=== PATIENT | female | born 1960 | race Caucasian/White ===

== ENCOUNTER 2018-11-24 14:31 | Observation (INO) ==
[2018-11-24] MEDS ORDERED: Aspirin 81 MG TAB.CHEW PO ONE (14:37)
[2018-11-24] MEDS ORDERED: 0.9 % Sodium Chloride 500 ML IVC ONE (14:37)
--- NOTE | 2018-11-24 14:37 | Emergency Department Note ---
Disposition Clinical Impression: Elevated troponin Chest pain Qualifiers: Chest pain type: unspecified Qualified Code(s): R07.9 - Chest pain, unspecified Anemia Qualifiers: Anemia type: unspecified type Qualified Code(s): D64.9 - Anemia, unspecified Disposition: Admitted As Inpatient Condition: Good Time of Disposition: 17:28 General Adult HPI - General Chief complaint: ED Chest Pain Stated complaint: chest pain Time Seen by Provider: 11/24/18 14:37 Source: patient Mode of arrival: wheelchair Limitations: no limitations Nursing Notes Reviewed: Yes Vital Signs Reviewed: Yes - History of Present Illness HPI Narrative: Female patient presenting to emergency complaining of left-sided chest pain that started after she was shopping. She attempted to go home with no relief of the chest pain. She did end up taking 2 baby aspirin. She denies any shortness of breath with this but does report some nausea. When she got to the hospital she syncopized outside. She was brought in to the hospital. She was alerted to verbal stimuli. Kept her eyes shut during most of my initial exam. However she was mentating appropriately and moving all 4 extremity is. No slurred speech. No neurologic deficits noted. Reporting left-sided chest pain that radiated to her shoulder. Nauseated previously but not at this time. Patient does have pallor appearance about her lips. Reports that the pain radiates to her back. Pain Scale: 7 - Related Data Home Medications Medication Instructions Recorded Confirmed Levothyroxine [Synthroid] 75 mcg PO QAM 07/19/15 11/24/18 Loratadine [Claritin] 10 mg PO QAM 07/19/15 11/24/18 Omeprazole [PriLOSEC] 40 mg PO QAM 07/19/15 11/24/18 Lisinopril [Zestril] 20 mg PO DAILY 11/24/18 11/24/18 Metoprolol [Lopressor] 12.5 mg PO BID 11/24/18 11/24/18 Multivit-Min/Folic Acid/Vit K1 1 cap PO DAILY 11/24/18 11/24/18 [Multi For Her 50 Plus Softgel] Ursodiol 1,200 mg PO BID 11/24/18 11/24/18 amLODIPine [Norvasc] 5 mg PO DAILY 11/24/18 11/24/18 Allergies Allergy/AdvReac Type Severity Reaction Status Date / Time No Known Allergies Allergy Verified 07/19/15 12:50 All systems ED: reviewed and negative except as stated. Review of Systems: As Per HPI Constitutional: Denies: fever, chills Cardiovascular: Reports: chest pain, palpitations, syncope Respiratory: Reports: dyspnea (Associated with the chest pain.). Denies: cough Gastrointestinal: Reports: nausea. Denies: abdominal pain, vomiting, diarrhea, hematemesis, melena, hematochezia Genitourinary: Denies: urgency, dysuria, frequency Neurological: Reports: weakness Past Medical History - Past Medical History Attestation: Yes The following information was validated with the patient. 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 Absent: scleral icterus - ENT ENT exam: normal exam, normal oropharynx, mucous membranes moist - Neck Neck exam: Present: normal inspection, full ROM, trachea midline. Absent: tenderness - Chest Chest inspection: Present: normal inspection, symmetric chest wall rise - Respiratory Respiratory exam: Present: normal lung sounds bilaterally. Absent: respiratory distress, accessory muscle use - Cardiovascular Cardiovascular exam: Present: regular rate, normal rhythm, normal heart sounds - Abdominal Exam Abdominal exam: Present: soft, Non-Tender. Absent: tenderness, distention, guarding, rebound, rigidity - Extremities Exam Extremities exam: Present: normal inspection, full ROM, normal capillary refill. Absent: tenderness, pedal edema, calf tenderness - Back Exam Back exam: Present: normal inspection, full ROM. Absent: tenderness - Neurological Exam Neurological exam: Present: alert, oriented X3 - Psychiatric Psychiatric exam: Present: normal affect, normal mood - Skin Skin exam: Present: warm, dry, intact, pallor Course Course Narrative: Patient with pallor color and appears very weak and tired presenting to the emergency department complaining of left sided chest pain that started today. She has had a cardiac workup previously with several cardiac catheters performed but no stent placed. She reports chest pain that started today while she was shopping. Did not really whenever she went home or with 2 baby aspirin. She then decided to come to the emergency department where she syncopized outside. She denies any trouble urinating or defecating. Denies any melena or hematochezia. Denies any abdominal pain but does report some nausea associated with the chest pain. Eyes any diaphoresis currently. No recent history of syncope. We did get a CT of patient's head which was within normal limits. We did get a CT dissection study of patient's chest secondary to her chest pain and syncope which was negative for dissection. Patient was found to be anemic on lab work. No history of this previously. We did do a bedside Hemoccult which showed a darkened stool. Results are pending at this time. We will provide patient with 1 unit of blood at this time and admit to the hospital. She is agreeable with this. Patient's troponin is elevated at 0.13. She did have some increase in her ST depressions in leads V5 and V6 however I do believe that her chest pain and troponin are likely ischemic changes from her anemia. Vital Signs Temperature 98.2 F 11/24/18 14:32 Pulse Rate 76 11/24/18 14:32 Respiratory Rate 16 11/24/18 14:32 Blood Pressure 140/70 11/24/18 14:32 O2 Sat by Pulse Oximetry 100 11/24/18 14:32 Temperature 98.2 F 11/24/18 14:32 Pulse Rate 69 11/24/18 16:16 Respiratory Rate 18 11/24/18 17:14 Blood Pressure 119/65 11/24/18 17:14 O2 Sat by Pulse Oximetry 100 11/24/18 16:16 Oxygen Delivery Oxygen Delivery Room Air Medical Decision Making - Medical Records Medical records reviewed: Yes I reviewed the patient's medical records. - Lab Data Lab results reviewed: Yes I reviewed the patient's lab results. Result diagrams: 11/24/18 14:35 11/24/18 14:35 Lab Results 11/24/18 11/24/18 11/24/18 Range/Units 14:35 14:35 14:35 WBC 8.2 (4.3-11.1) K/mcL RBC 2.45 L (3.82-4.97) M/mcL Hgb 6.8 L (11.5-15.4) g/dL Hct 22.3 L (35.3-44.9) % MCV 91.0 (83.0-100.0) fL MCH 27.8 L (28.0-33.3) pg MCHC 30.5 L (31.6-35.5) g/dL RDW 15.4 H (11.5-14.5) % Plt Count 187 (140-400) K/mcL MPV 11.9 (9.4-12.4) fL Immature Gran % 0.6 (0-4) % Seg Neutrophils % 47.8 % Lymphocytes % 42.0 % Monocytes % 7.1 % Eosinophils % 2.0 % Basophils % 0.5 % Neutrophils # 3.9 (1.6-8.9) K/mcL Lymphocytes # 3.4 (0.6-4.6) K/mcL Monocytes # 0.6 (0.0-1.3) K/mcL Eosinophils # 0.2 (0.0-0.6) K/mcL Basophils # 0.0 (0.0-0.2) K/mcL PT 11.1 (9.4-12.1) Seconds INR 1.0 APTT 34.1 (26.0-36.0) Seconds Sodium (136-145) mEq/L Potassium (3.5-5.1) mEq/L Chloride (98-107) mEq/L Carbon Dioxide (23-29) mEq/L BUN (6-20) mg/dL Creatinine (0.60-1.20) mg/dL Est GFR ( Amer) (> 60) Est GFR (Non-Af Amer) (> 60) BUN/Creatinine Ratio (6-26) Glucose (70-105) mg/dL POC Glucose 133 H (70-99) mg/dL Calculated Osmolality (280-300) Calcium (8.6-10.3) mg/dL Troponin I (< 0.04) ng/mL Urine Color (Yellow) Urine Clarity (Clear) Urine pH (5.0-8.0) pH Units Ur Specific [place] (1.010-1.025) Urine Protein (Neg-Trace) mg/dL Urine Glucose (UA) (Normal) mg/dL Urine Ketones (Negative) mg/dL Urine Blood (Negative) Urine Nitrite (Negative) Urine Bilirubin (Negative) Urine Urobilinogen (Normal) mg/dL Ur Leukocyte Esterase (Negative) Urine Microscopic RBC (0-3) per hpf Urine Microscopic WBC (0-3) per hpf Ur Squamous Epith Cells (None-Few) per lpf Urine Bacteria (None-Few) per hpf Hyaline Casts (None-Few) per lpf Ur Culture Indicated? (NO) Stool Occult Bld Scrn (Negative) 11/24/18 11/24/18 11/24/18 Range/Units 14:35 16:18 16:56 WBC (4.3-11.1) K/mcL RBC (3.82-4.97) M/mcL Hgb (11.5-15.4) g/dL Hct (35.3-44.9) % MCV (83.0-100.0) fL MCH (28.0-33.3) pg MCHC (31.6-35.5) g/dL RDW (11.5-14.5) % Plt Count (140-400) K/mcL MPV (9.4-12.4) fL Immature Gran % (0-4) % Seg Neutrophils % % Lymphocytes % % Monocytes % % Eosinophils % % Basophils % % Neutrophils # (1.6-8.9) K/mcL Lymphocytes # (0.6-4.6) K/mcL Monocytes # (0.0-1.3) K/mcL Eosinophils # (0.0-0.6) K/mcL Basophils # (0.0-0.2) K/mcL PT (9.4-12.1) Seconds INR APTT (26.0-36.0) Seconds Sodium 141 (136-145) mEq/L Potassium 4.0 (3.5-5.1) mEq/L Chloride 107 (98-107) mEq/L Carbon Dioxide 26 (23-29) mEq/L BUN 25 H (6-20) mg/dL Creatinine 0.89 (0.60-1.20) mg/dL Est GFR ( Amer) > 60 (> 60) Est GFR (Non-Af Amer) > 60 (> 60) BUN/Creatinine Ratio 28 H (6-26) Glucose 109 H (70-105) mg/dL POC Glucose (70-99) mg/dL Calculated Osmolality 297 (280-300) Calcium 9.2 (8.6-10.3) mg/dL Troponin I 0.13 H* (< 0.04) ng/mL Urine Color Yellow (Yellow) Urine Clarity Clear (Clear) Urine pH 6.0 (5.0-8.0) pH Units Ur Specific [place] 1.026 H (1.010-1.025) Urine Protein Negative (Neg-Trace) mg/dL Urine Glucose (UA) Normal (Normal) mg/dL Urine Ketones Negative (Negative) mg/dL Urine Blood Negative (Negative) Urine Nitrite Negative (Negative) Urine Bilirubin Negative (Negative) Urine Urobilinogen Normal (Normal) mg/dL Ur Leukocyte Esterase Moderate H (Negative) Urine Microscopic RBC 0-3 (0-3) per hpf Urine Microscopic WBC 0-3 (0-3) per hpf Ur Squamous Epith Cells Moderate H (None-Few) per lpf Urine Bacteria None Seen (None-Few) per hpf Hyaline Casts None Seen (None-Few) per lpf Ur Culture Indicated? YES A (NO) Stool Occult Bld Scrn Positive A (Negative) - Radiology Data Radiology results reviewed: Yes I reviewed the patient's radiology results. Chest X-Ray 11/24/18 14:38 IMPRESSION: No acute abnormality detected. D/ / Godwin Waterman MD / Godwin Waterman MD Interpreting Provider: Godwin Waterman MD - EKG Data EKG #1 EKG attestation: Yes I reviewed and interpreted this EKG. EKG results narrative: Sinus rhythm with a left bundle branch block at a rate of 73. WA interval is 168. QRS duration is 144. QT is 425. QTC is 469. Patient does have ST elevation in lead V1 and V2 consistent with a previous left bundle branch block. These were seen on previous EKG dated 10/13/2018. Patient also has T-wave inversion in leads V5 and V6 does appear to be more prominent than previous EKG dated the 2018. Patient's EKG does not need Scarbosa criteria for STEMI. Attestation Statement - Attestation Attestation: Luis Alberto Gallegos, examined this patient and my medical decision-making was reviewed with the OCCUPATIONAL THERAPY AIDES TEACHER/PA/Advanced Practice Nurse/Resident Physician. I agree with the documented findings, disposition and treatment plan as described except to the extent set forth below. 58-year-old female presents emergency Department with concerns of acute onset chest pain. Patient states she has been feeling weak and fatigued over the past few days however it significantly worsened today. Patient states she became weak, fatigued, short of breath when she had her chest pain today while shopping. Patient states the pain was a pressure in the center of her chest that did not radiate. It was exacerbated by ambulation and exertion and improves with rest. The last about 8-10 minutes at a time. Once the pain improved she tried to continue shopping however her symptoms returned. She syncopized while trying to walk into the emergency department when she had a repeat of the weakness, fatigue and chest pain. Lungs are clear to auscultation bilaterally. Abdomen is nontender to palpation. The laboratory evaluation returned showing that she was anemic. This is a significant change from her lab s 2 years ago. Patient denies a history of GI bleeding. She denies hematochezia, melena or recent trauma. She does not take blood thinning medication. Patient vital signs are stable in emergency department. She will be admitted to the hospitalist for further care and evaluation.
[2018-11-24 15:01] LABS: Basophils % 0.5 %; Eosinophils # 0.2 K/mcL (0.0-0.6); Hematocrit 22.3 % (35.3-44.9); Hemoglobin 6.8 g/dL (11.5-15.4); Immature Granulocytes % 0.6 % (0-4); Lymphocytes # 3.4 K/mcL (0.6-4.6); Mean Corpuscular HGB Conc 30.5 g/dL (31.6-35.5); Mean Corpuscular Hemoglobin 27.8 pg (28.0-33.3); Mean Platelet Volume 11.9 fL (9.4-12.4); Monocytes # 0.6 K/mcL (0.0-1.3); Monocytes % 7.1 %; Neutrophils # 3.9 K/mcL (1.6-8.9); Platelet Count 187 K/mcL (140-400); Red Blood Count 2.45 M/mcL (3.82-4.97); Red Cell Distribution Width 15.4 % (11.5-14.5); Segmented Neutrophils % 47.8 %; White Blood Count 8.2 K/mcL (4.3-11.1)
[2018-11-24 15:13] LABS: Prothrombin Time 11.1 Seconds (9.4-12.1)
[2018-11-24 15:15] LABS: Activated Partial Thrombo Time 34.1 Seconds (26.0-36.0)
[2018-11-24 15:24] LABS: BUN/Creatinine Ratio 28 (6-26); Blood Urea Nitrogen 25 mg/dL (6-20); Calcium 9.2 mg/dL (8.6-10.3); Carbon Dioxide 26 mEq/L (23-29); Chloride 107 mEq/L (98-107); Glucose 109 mg/dL (70-105); Osmolality,Calculated 297 (280-300); Sodium 141 mEq/L (136-145); eGFR For African Americans > 60 (> 60); eGFR For Non-African Americans > 60 (> 60)
[2018-11-24] MEDS ORDERED: Isovue-370 500 ML BOTTLE IVP ONE (15:26)
[2018-11-24 15:30] LABS: Troponin I 0.13 ng/mL (< 0.04)
[2018-11-24 16:29] LABS: Bilirubin,Urine Negative (Negative); Blood,Urine Negative (Negative); Clarity,Urine Clear (Clear); Color,Urine Yellow (Yellow); Glucose,Urine (UA) Normal (Normal); Ketones,Urine Negative (Negative); Leukocyte Esterase,Urine Moderate (Negative); Nitrite,Urine Negative (Negative); Protein,Urine Negative (Neg-Trace); Specific Gravity,Urine 1.026 (1.010-1.025); Urobilinogen,Urine Normal (Normal)
[2018-11-24 16:31] LABS: Bacteria,Urine None Seen per hpf (None-Few); Hyaline Casts,Urine None Seen per lpf (None-Few); RBC,Urine 0-3 per hpf (0-3); Squamous Epithelial Cell,Urine Moderate per lpf (None-Few); WBC,Urine 0-3 per hpf (0-3)
--- NOTE | 2018-11-24 16:49 | Internal Med History&Physical ---
Date of Encounter: 11/24/18 Time of Encounter: 16:59 Internal Medicine - H&P: HPI History of present illness: Ms. Butcher is a 58 year old female with history of HOCM presented for chest pain and fatigue. For the past week patient has felt fatigued and overall too weak. She has been short of breath with exertion. For the last two days, she has had intermittent episodes of chest pain that is substernal that radiates to her left jaw, and some numbness/tingling. She denies n/v, fevers, abdominal pain, melena, hematochezia, hemoptysis. She took two baby aspirin and was brought into the ED by her and friend for evaluation and passed out briefly prior to evaluation. She has never had any episodes like this in the past. In the ED troponin was elevated at 0.14. An EKG showed LBBB with normal HR, T wave inversions in V5, V6. Hemoglobin low at 6.8, with last known baseline a few years ago was 11.0. A CTA chest/abdomen/pelvis was negative for dissection or obstruction. A CT head was negative. Family history reviewed, significant for coronary artery disease. Past Med Surg Social Fam HX - Past Medical History Medical history: GERD, hypertension, thyroid disease, other Additional medical history: FUNEZ Psychiatric history: depression - Past Surgical History Surgical History: other Additional surgical history: left eye sx - Social History Smoking Status: Never smoker Smokeless Tobacco Status: No Alcohol use: none Drug use: none Internal Medicine - H&P: Meds Levothyroxine [Synthroid] 75 mcg PO QAM 07/19/15 [History] Loratadine [Claritin] 10 mg PO QAM 07/19/15 [History] Omeprazole [PriLOSEC] 40 mg PO QAM 07/19/15 [History] Lisinopril [Zestril] 20 mg PO DAILY 11/24/18 [History] Metoprolol [Lopressor] 12.5 mg PO BID 11/24/18 [History] Multivit-Min/Folic Acid/Vit K1 [Multi For Her 50 Plus Softgel] 1 cap PO DAILY 11/24/18 [History] Ursodiol 1,200 mg PO BID 11/24/18 [History] amLODIPine [Norvasc] 5 mg PO DAILY 11/24/18 [History] Allergy/AdvReac Type Severity Reaction Status Date / Time No Known Allergies Allergy Verified 07/19/15 12:50 All Systems PM: A 10-system review of systems was performed and is negative for pertinent findings except as documented above in the HPI. - Constitutional Constitutional: fatigue, lethargy - EENT Eyes: no blurry vision Nose, mouth and throat: no bleeding gums, no dysphagia, no epistaxis, no nasal discharge, no neck mass - Cardiovascular Cardiovascular ROS IM: chest pain, dyspnea on exertion, no diaphoresis - Respiratory Respiratory: no cough, no hemoptysis - Gastrointestinal Gastrointestinal: no abdominal pain, no change in bowel habits, no change in stool character, no coffee ground emesis, no constipation, no cramping, no hematemesis, no hematochezia, no loose stools, no melena, no nausea, no odynophagia, no vomiting - Genitourinary Genitourinary: no change in urinary stream, no dysuria, no flank pain, no hematuria - Musculoskeletal Musculoskeletal ROS IM: no numbness, no tingling - Integumentary Integumentary IM: no rash, no unusual bruising - Neurological Neurological ROS: no confusion, no convulsions, no focal weakness, no numbness, no tingling, no tremor(s) - Hematologic/Lymphatic Hematologic/Lymphatic: no easy bruising - Constitutional Vitals: Temp Pulse Resp BP Pulse Ox 98.2 F 69 16 133/72 100 11/24/18 14:32 11/24/18 16:16 11/24/18 16:16 11/24/18 16:16 11/24/18 16:16 General appearance: Present: A&O X 3, answers questions appropriately Exam: . - Head Head exam: Present: atraumatic, normocephalic - Eye Eye exam: Present: PERRL, sclera anicteric. Absent: conjuntiva pink (conjuntiva pallor) Pupils: Present: PERRL - ENT ENT exam: Present: mucous membranes dry Additional comments: oral mucosa pale - Neck Neck exam general surgery: Present: supple, trachea midline. Absent: lymphadenopathy - Respiratory Respiratory exam: Present: CTAB. Absent: accessory muscle use, rales, rhonchi, wheezes - Cardiovascular Cardiovascular exam: Present: RRR, +S1, +S2. Absent: diastolic murmur, gallop, rubs, systolic murmur - GI/Abdominal GI/Abdominal exam: Present: normal bowel sounds, soft, no peritoneal signs. Absent: distended, tenderness - Extremities Exam Extremities exam: Present: warm, radial pulses palpable and symmetrical. Absent: calf tenderness, cyanotic, pedal edema - Neurological Exam Neurological exam: Present: CN II-XII intact, oriented X3, no focal deficits. Absent: pronater drift, facial droop, speech deficit - Skin Skin exam: Present: dry, intact Internal Med - H&P Results - Labs CBC & Chem 7: 11/24/18 14:35 11/24/18 14:35 Labs: Short CBC 11/24/18 Range/Units 14:35 WBC 8.2 (4.3-11.1) K/mcL Hgb 6.8 L (11.5-15.4) g/dL Hct 22.3 L (35.3-44.9) % Plt Count 187 (140-400) K/mcL Neutrophils # 3.9 (1.6-8.9) K/mcL BMP 11/24/18 14:35 Sodium 141 Potassium 4.0 Chloride 107 Carbon Dioxide 26 BUN 25 H Creatinine 0.89 Glucose 109 H Calcium 9.2 Cardiac Enzymes 11/24/18 Range/Units 14:35 Troponin I 0.13 H* (< 0.04) ng/mL Urine 11/24/18 Range/Units 16:18 Urine Color Yellow (Yellow) Urine Clarity Clear (Clear) Urine pH 6.0 (5.0-8.0) pH Units Ur Specific [place] 1.026 H (1.010-1.025) Urine Protein Negative (Neg-Trace) mg/dL Urine Glucose (UA) Normal (Normal) mg/dL - Impressions ITS Impressions Chest X-Ray 11/24/18 14:38 IMPRESSION: No acute abnormality detected. D/ / Godwin Waterman MD / Godwin Wateramn MD Interpreting Provider: Godwin Waterman MD Head CT 11/24/18 14:39 IMPRESSION: No acute intracranial abnormality. D/ / Ha Marks MD / Ha Marks MD Interpreting Provider: Ha Marks MD Dissection 11/24/18 15:26 IMPRESSION: 1. No thoracoabdominal aortic aneurysm or dissection. No acute abnormality in the chest, abdomen, or pelvis. 2. Mild cardiomegaly. 3. Small hiatal hernia. 4. The urinary bladder is fluid distended resulting in fullness of the ureters and collecting systems bilaterally. D/ / 11/24/2018 16:23:16 Ha Marks MD / abel Interpreting Provider: Ha Marks MD - Assessment and Plan (1) Symptomatic anemia Current Visit: Yes Status: Acute Assessment and plan: Suspect GI bleed. Hemoglobin 6.8 on admission, BUN slightly elevated. Denies any gross appearing melena, hematochezia, hemoptysis, hematuria, hematemesis. - Consult GI - Transfuse to keep Hgb >7.0, transfusing one unit. - IV Protonix Q12H - NPO (2) NSTEMI (non-ST elevated myocardial infarction) Current Visit: Yes Status: Acute Assessment and plan: Suspect due to type II from demand ischemiaSuspect this is due to anemia, but will need to rule out cardiac causes. - cycle cardiac enzymes - echocardiogram - Cardiology consultation - See plan for anemia (3) Syncope Current Visit: Yes Status: Acute Assessment and plan: Likely due to acute and symptomatic anemia. CT head negative, hemodynamically stable. Qualifiers: Syncope type: unspecified Qualified Code(s): R55 - Syncope and collapse (4) HTN (hypertension) Current Visit: No Status: Chronic Assessment and plan: After cycling HH and monitoring VS, can resume BP medications as needed. Qualifiers: Hypertension type: essential hypertension Qualified Code(s): I10 - Essential (primary) hypertension (5) Hypothyroid Current Visit: No Status: Chronic Qualifiers: Hypothyroidism type: unspecified Qualified Code(s): E03.9 - Hypothyroidism, unspecified - Time Spent With Patient Total time spent is greater than 50% in coordination of care (as documented) at patient's floor/unit and/or counseling patient:
[2018-11-24] MEDS ORDERED: 0.9 % Sodium Chloride 250 ML ONE (17:50)
[2018-11-24] MEDS ORDERED: Naloxone 0.4 MG/ML INJ IVP PRN (18:06)
[2018-11-24] MEDS ORDERED: 0.9 % Sodium Chloride w KCl 20 MEQ/1,000 ML MLS IVC SCH (18:15)
[2018-11-24] MEDS: Pantoprazole 40 MG in 0.9 % Sodium Chloride Mini Bag 100 ML IVC SCH (20:23)
[2018-11-24 21:58] LABS: Hematocrit 23.4 % (35.3-44.9); Hemoglobin 7.3 g/dL (11.5-15.4)
[2018-11-24 22:18] LABS: % Iron Saturation 21 % (15-50); Iron 98 mcg/dL (50-170); Transferrin 327 mg/dL (203-362)
[2018-11-24 22:46] LABS: Ferritin < 8 ng/mL (10-120)
[2018-11-25 00:06] LABS: Troponin I 0.17 ng/mL (< 0.04)
[2018-11-25] MEDS: Pantoprazole 40 MG in 0.9 % Sodium Chloride Mini Bag 100 ML IVC SCH ×3 (00:54→10:58)
[2018-11-25 04:32] LABS: Basophils % 0.3 %; Eosinophils # 0.2 K/mcL (0.0-0.6); Eosinophils % 2.9 %; Hematocrit 22.3 % (35.3-44.9); Immature Granulocytes % 0.6 % (0-4); Lymphocytes # 2.7 K/mcL (0.6-4.6); Lymphocytes % 38.9 %; Mean Corpuscular HGB Conc 31.4 g/dL (31.6-35.5); Mean Corpuscular Hemoglobin 28.1 pg (28.0-33.3); Mean Corpuscular Volume 89.6 fL (83.0-100.0); Monocytes # 0.5 K/mcL (0.0-1.3); Monocytes % 6.6 %; Neutrophils # 3.6 K/mcL (1.6-8.9); Platelet Count 163 K/mcL (140-400); Red Blood Count 2.49 M/mcL (3.82-4.97); Red Cell Distribution Width 15.8 % (11.5-14.5); Segmented Neutrophils % 50.7 %
[2018-11-25 04:50] LABS: BUN/Creatinine Ratio 24 (6-26); Blood Urea Nitrogen 17 mg/dL (6-20); Calcium 8.3 mg/dL (8.6-10.3); Carbon Dioxide 23 mEq/L (23-29); Chloride 112 mEq/L (98-107); Glucose 91 mg/dL (70-105); Osmolality,Calculated 293 (280-300); Potassium 3.8 mEq/L (3.5-5.1); Sodium 141 mEq/L (136-145); eGFR For African Americans > 60 (> 60); eGFR For Non-African Americans > 60 (> 60)
[2018-11-25] MEDS ORDERED: Pantoprazole 40 MG VIAL IVP SCH (06:00)
[2018-11-25] MEDS ORDERED: 0.9 % Sodium Chloride 250 ML ONE (06:05)
[2018-11-25] MEDS: Lisinopril 20 MG TABLET PO SCH ×2 (07:36→18:35)
[2018-11-25] MEDS: Multivit/Ca/Min/Fe/FA 1 TAB TABLET PO SCH (07:36)
[2018-11-25] MEDS: amLODIPine 5 MG TABLET PO SCH ×2 (07:36→18:36)
[2018-11-25 10:10] LABS: Hematocrit 27.5 % (35.3-44.9)
[2018-11-25 10:14] LABS: Hemoglobin 8.7 g/dL (11.5-15.4)
--- NOTE | 2018-11-25 10:23 | Cardiology Consult Note ---
<Per Lea - Last Filed: 11/25/18 10:37> Date of Encounter: 11/25/18 Time of Encounter: 10:20 Assessment and Plan (1) Elevated troponin Current Visit: Yes Status: Acute Troponin 0.13, 0.17, 0.14 in setting of acute anemia--HGB 6.8, occult stool positive. Suspect demand ischemia, nondiagnostic for ACS. Presented with fatigue, dyspnea and chest pain. Currently not a candidate for ischemic evaluation given acute bleeding. EKG showed LBBB which is known. TTE 08/27/17: LVEF 60%. Asymmetric basal septal hypertrophy. Elevated gradient along the LVOT at rest, 62 mmHg. Mild LVDD. Moderate calcified/thickened aortic valve - possibly a congenitally abnormal valve. Repeat TTE. Anticipate sign off if no significant changes noted on TTE. (2) Syncope Current Visit: Yes Status: Acute Episode of dizziness and syncope after arrival. Suspect secondary to blood loss with HGB 6.8 on arrival. Repeat TTE. Qualifiers: Syncope type: unspecified Qualified Code(s): R55 - Syncope and collapse (3) Chest pain Current Visit: Yes Status: Acute Chest pain in setting of acute anemia. Chest pain free currently. Not a candidate for ischemic evaluation given bleeding. TTE. Qualifiers: Chest pain type: unspecified Qualified Code(s): R07.9 - Chest pain, unspecified (4) HOCM (hypertrophic obstructive cardiomyopathy) Current Visit: Yes Status: Acute TTE 08/27/17: LVEF 60%. Asymmetric basal septal hypertrophy. Turbulent color-flow along the LVOT secondary to obstruction (MELO of the mitral valve may be present but not optimally seen). Elevated gradient along the LVOT at rest, 62 mmHg. Recommend hydration, blood transfusions and BB. Increase BB to Lopressor 25mg BID. Discussion w patient/family: The assessment and plan as outlined above was discussed with the patient and/or family members who expressed understanding and agreement. All questions were answered. Thank you for involving us in the care of your patient. Please call with any questions. I will discuss all the above with Dr. Covarrubias and make changes as necessary. History of Present Illness Consult date: 11/25/18 Consult reason: chest pain, elevated troponin Chief complaint: chest pain, fatigue, dyspnea History of present illness: Ms. Butcher is a 58 year old female with PMH of HOCM that presented to ED for chest pain, exertional dyspnea and fatigue for the past week. Chest pain is substernal that radiates to her left jaw, and some numbness/tingling. She took two baby aspirin and was brought into the ED by her and friend for evaluation and passed out briefly prior to evaluation while in the ED. Reports intermittent dizziness. She has never had any episodes like this in the past. In the ED troponin was elevated at 0.13, 0.17, 0.14. An EKG showed LBBB which is known. HGB 6.8, with last known baseline a few years ago was 11.0. A CTA chest/abdomen/pelvis was negative for dissection. A CT head was negative. Occult blood was positive. Cardiology consulted for further recs. Prior CV testing: Holter 10/16/18: Underlying rhythm is sinus. Infrequent ventricular ectopy. A 6- beat run of NSVT at 126 bpm. Occasional supraventricular ectopy. Symptoms correspond to sinus rhythm. TTE 08/27/17: LVEF 60%. Asymmetric basal septal hypertrophy. Turbulent color-flow along the LVOT secondary to obstruction (MELO of the mitral valve may be present but not optimally seen). Elevated gradient along the LVOT at rest, 62 mmHg. Mild LVDD. Normal RV structure and function. Mild MR. Moderate calcified/thickened aortic valve - possibly a congenitally abnormal valve. Unable to calculate aortic valve area due to turbulent LVOT signal. Mild AR. Mild TR. Mild phtn. There is a small pericardial effusion present most prominent along the inferior wall. There is no echocardiographic evidence of tamponade. Past Med Surg Social Fam HX - Past Medical History Medical history: GERD, hypertension, thyroid disease, other Additional medical history: FUNEZ Psychiatric history: depression - Past Surgical History Surgical History: other Additional surgical history: left eye sx - Social History Smoking Status: Never smoker Smokeless Tobacco Status: No Alcohol use: none Drug use: none Medications and Allergies Levothyroxine [Synthroid] 75 mcg PO QAM 07/19/15 [History] Loratadine [Claritin] 10 mg PO QAM PRN 07/19/15 [History] Lisinopril [Zestril] 20 mg PO QAM 11/24/18 [History] Metoprolol [Lopressor] 12.5 mg PO BID 11/24/18 [History] Multivit-Min/Folic Acid/Vit K1 [Multi For Her 50 Plus Softgel] 1 cap PO QAM 11/24/18 [History] Ursodiol 300 mg PO QID 11/24/18 [History] amLODIPine [Norvasc] 5 mg PO QAM 11/24/18 [History] Aspirin [Lo-Dose Aspirin EC] 81 mg PO QAM 11/25/18 [History] Pantoprazole Sodium [Protonix] 40 mg PO QAM 11/25/18 [History] Allergy/AdvReac Type Severity Reaction Status Date / Time No Known Allergies Allergy Verified 11/25/18 00:20 All Systems Review: The remainder of the systems were reviewed and are negative - Constitutional Constitutional: fatigue - Cardiovascular Cardiovascular: as per HPI, chest pain with exertion, dyspnea on exertion - Respiratory Respiratory: dyspnea Physical Examination Vital Signs, Last 4 Hours Temp Pulse Resp BP Pulse Ox 11/25/18 09:02 98.3 F 83 16 150/90 99 11/25/18 07:45 98.4 F 76 16 138/70 97 11/25/18 07:34 98.4 F 85 16 137/80 98 11/25/18 06:29 98.5 F 77 12 121/66 95 Vital Signs Temp Pulse Resp BP Pulse Ox 11/25/18 09:02 98.3 F 83 16 150/90 99 11/25/18 07:45 98.4 F 76 16 138/70 97 11/25/18 07:34 98.4 F 85 16 137/80 98 11/25/18 06:29 98.5 F 77 12 121/66 95 11/25/18 06:14 98.2 F 80 16 131/77 11/24/18 23:12 98.1 F 81 14 144/76 100 11/24/18 20:58 98.2 F 63 12 146/73 11/24/18 20:30 97 11/24/18 20:19 97.6 F 75 12 111/69 97 11/24/18 18:20 98.4 F 72 16 124/70 11/24/18 18:05 98.5 F 74 16 122/67 11/24/18 17:57 98.3 F 74 16 121/83 98 11/24/18 17:49 98.3 F 74 17 121/83 98 11/24/18 17:14 18 119/65 11/24/18 16:16 69 16 133/72 100 11/24/18 15:18 71 104/47 99 11/24/18 14:54 99 11/24/18 14:32 98.2 F 76 16 140/70 100 Intake and Output 11/24/18 11/25/18 11/25/18 23:59 07:59 15:59 Intake Total 350 / 850 1200 / 1450 250 / 1450 Output Total 850 / 850 400 / 900 500 / 900 Balance -500 / 0 800 / 550 -250 / 550 Intake: IV Fluids 100 / 600 1200 / 1200 0.9 % Sodium Chloride 250 ML @ 100 / 100 0 mls/hr .ROUTE .K-MED ONE Rx #:[id number] KCl 20 mEq in 0.9% Sodium 1000 / 1000 Chloride 20 meq In 1,000 ml @ 100 mls/hr IVC .Q10H [facility] Rx#: [id number] Protonix 40 MG In 0.9 % Sodium 200 / 200 Chloride (Mini-Bag +) 100 ML @ 20 mls/hr IVC .Q5H [facility] Rx#: [id number] Oral 0 / 0 Blood Product 250 / 250 0 / 250 250 / 250 Rbcs Leuko Poor As-1 Unit 0 / 250 250 / 250 [id number] Rbcs Leuko Poor As-1 Unit 250 / 250 [id number] Output: Urine 850 / 850 400 / 900 500 / 900 Other: # Voids 1 1 Weight 91.1 kg 91 kg Patient Weight 11/25/18 23:59 Weight 91 kg General: Conversant, No Apparent Distress HEENT: Atraumatic, Normocephaly, Mucus Membranes Moist Neck: No JVD, Normal carotid pulses Cardiac: Other (2/6 murmur) Lungs: Normal Breath Sounds, No Wheeze, Rales, Rhonchi Neuro: Alert and responsive, No focal deficits noted Abdomen: Soft, Non-Tender Skin: No rashes noted on visualized skin Musculoskeletal: No Chest Wall Tenderness Extremities: No Clubbing, No Cyanosis, No Edema, Normal Pulses Results 11/25/18 09:48 11/25/18 03:48 Lab Results 11/24/18 11/24/18 11/24/18 14:35 14:35 14:35 WBC 8.2 Hgb 6.8 L Hct 22.3 L Plt Count 187 INR 1.0 APTT 34.1 Sodium 141 Potassium 4.0 Chloride 107 Carbon Dioxide 26 BUN 25 H Creatinine 0.89 Glucose 109 H Calcium 9.2 Troponin I 0.13 H* 11/24/18 11/24/18 11/25/18 21:22 21:23 03:48 WBC 7.0 Hgb 7.3 L 7.0 L Hct 23.4 L 22.3 L Plt Count 163 INR APTT Sodium Potassium Chloride Carbon Dioxide BUN Creatinine Glucose Calcium Troponin I 0.17 H* 11/25/18 11/25/18 03:48 09:48 WBC Hgb 8.7 L D Hct 27.5 L Plt Count INR APTT Sodium 141 Potassium 3.8 Chloride 112 H Carbon Dioxide 23 BUN 17 Creatinine 0.72 Glucose 91 Calcium 8.3 L Troponin I Short CBC 11/25/18 11/25/18 11/24/18 Range/Units 09:48 03:48 21:23 WBC 7.0 (4.3-11.1) K/mcL Hgb 8.7 L D 7.0 L 7.3 L (11.5-15.4) g/dL Hct 27.5 L 22.3 L 23.4 L (35.3-44.9) % Plt Count 163 (140-400) K/mcL Neutrophils # 3.6 (1.6-8.9) K/mcL 11/24/18 Range/Units 14:35 WBC 8.2 (4.3-11.1) K/mcL Hgb 6.8 L (11.5-15.4) g/dL Hct 22.3 L (35.3-44.9) % Plt Count 187 (140-400) K/mcL Neutrophils # 3.9 (1.6-8.9) K/mcL BMP 11/25/18 11/24/18 Range/Units 03:48 14:35 Sodium 141 141 (136-145) mEq/L Potassium 3.8 4.0 (3.5-5.1) mEq/L Chloride 112 H 107 (98-107) mEq/L Carbon Dioxide 23 26 (23-29) mEq/L BUN 17 25 H (6-20) mg/dL Creatinine 0.72 0.89 (0.60-1.20) mg/dL Glucose 91 109 H (70-105) mg/dL Calcium 8.3 L 9.2 (8.6-10.3) mg/dL Cardiac Enzymes 11/25/18 11/24/18 11/24/18 Range/Units 09:48 21:22 14:35 Troponin I 0.14 H* 0.17 H* 0.13 H* (< 0.04) ng/mL Urine 11/24/18 Range/Units 16:18 Urine Color Yellow (Yellow) Urine Clarity Clear (Clear) Urine pH 6.0 (5.0-8.0) pH Units Ur Specific [place] 1.026 H (1.010-1.025) Urine Protein Negative (Neg-Trace) mg/dL Urine Glucose (UA) Normal (Normal) mg/dL Impressions Chest X-Ray 11/24/18 14:38 IMPRESSION: No acute abnormality detected. D/ / Godwin Waterman MD / Godwin Waterman MD Interpreting Provider: Godwin Waterman MD Head CT 11/24/18 14:39 IMPRESSION: No acute intracranial abnormality. D/ / Ha Marks MD / Ha Marks MD Interpreting Provider: Ha Marks MD Dissection 11/24/18 15:26 IMPRESSION: 1. No thoracoabdominal aortic aneurysm or dissection. No acute abnormality in the chest, abdomen, or pelvis. 2. Mild cardiomegaly. 3. Small hiatal hernia. 4. The urinary bladder is fluid distended resulting in fullness of the ureters and collecting systems bilaterally. D/ / 11/24/2018 16:23:16 Ha Marks MD / abel Interpreting Provider: Ha Marks MD Active Medications Amlodipine Besylate (Norvasc) 5 mg PO DAILY [facility]; Protocol Stop: 05/27/19 09:01 Last Admin: 11/25/18 07:36 Dose: Not Given Documented by: Pantoprazole Sodium 40 mg/ (Sodium Chloride) 100 mls @ 20 mls/hr IVC .Q5H [facility] Stop: 05/26/19 18:16 Last Admin: 11/25/18 05:46 Dose: 20 mls/hr Documented by: Levothyroxine Sodium (Synthroid) 75 mcg PO QAM@0630 [facility] Stop: 05/27/19 06:31 Last Admin: 11/25/18 05:55 Dose: Not Given Documented by: Lisinopril (Zestril) 20 mg PO DAILY [facility]; Protocol Stop: 05/27/19 09:01 Last Admin: 11/25/18 07:36 Dose: Not Given Documented by: Metoprolol Tartrate (Lopressor) 25 mg PO BID [facility] Stop: 05/27/19 09:31 Last Admin: 11/25/18 09:45 Dose: 25 mg Documented by: Multivitamins/Calcium (Thera M Plus) 1 tab PO DAILY [facility] Stop: 05/27/19 09:01 Last Admin: 11/25/18 07:36 Dose: Not Given Documented by: Naloxone HCl (Narcan) 0.4 mg IVP Q2MPRN PRN PRN Reason: SEE COMMENTS Stop: 05/26/19 18:07 Ursodiol (Ursodiol) 300 mg PO QID [facility] Stop: 05/26/19 22:31 Last Admin: 11/25/18 07:36 Dose: Not Given Documented by: - Imaging and Cardiology Echo: report reviewed Holter: report reviewed - EKG Interpretation EKG results cardiology: personally reviewed Consult Discharge Plan - Plan Referrals: Wenceslao Turner MD [Primary Care Provider] - <Yelitza Covarrubias - Last Filed: 11/25/18 17:01> Date of Encounter: 11/25/18 - Attending Attestation Patient was seen and evaluated independently by me. Findings, assessment and plan were discussed at length with patient, questions answered. Agree with nurse practitioner's/resident's documentation. Addition as follows, 58yoCF ho HOCM high gradient 60s, NSVT on Holter, LBBB, HTN, hyopothyroidism. P/w fatigue, chest pain, dizziness and one syncopal episode in ED. Found Hb 6s from baseline 11 yrs ago. ECG no ischemic findings, mild trop 0.1s, tele no events. Repeated TTE EF 60-65%, asymmetric basal hypertrophy (<3cm) with peak gradient 70, RV n, mild MR/TR, mild PH. Feels better after PRBC, Hb 8S, pending GI endoscopy. BP mild fluctuation, HR 60s-70s mostly, RR, 3/6 SM ULSB, CTA, no LE edema OB + A: Acute or subacute blood loss anemia, likely GIB HOCM Single episode of syncope with sig anemia NSVT on Holter HTN P: avoid hypovolemia, hypotension and beta-agonists c/w BB need cardiology clinic f/u eval for indication of ICD Yelitza Covarrubias MD, PhD Assessment and Plan Discussion w patient/family: The assessment and plan as outlined above was discussed with the patient and/or family members who expressed understanding and agreement. All questions were answered. Thank you for involving us in the care of your patient. Please call with any questions. History of Present Illness History of present illness: Ms. Butcher is a 58 year old female All Systems Review: The remainder of the systems were reviewed and are negative Physical Examination Vital Signs, Last 4 Hours Temp Pulse Resp BP Pulse Ox 11/25/18 13:38 98.3 F 69 16 140/81 97 Results 11/25/18 09:48 11/25/18 03:48 Lab Results 11/24/18 11/24/18 11/25/18 21:22 21:23 03:48 WBC 7.0 Hgb 7.3 L 7.0 L Hct 23.4 L 22.3 L Plt Count 163 Sodium Potassium Chloride Carbon Dioxide BUN Creatinine Glucose Calcium Troponin I 0.17 H* 11/25/18 11/25/18 11/25/18 03:48 09:48 09:48 WBC Hgb 8.7 L D Hct 27.5 L Plt Count Sodium 141 Potassium 3.8 Chloride 112 H Carbon Dioxide 23 BUN 17 Creatinine 0.72 Glucose 91 Calcium 8.3 L Troponin I 0.14 H*
--- NOTE | 2018-11-25 11:24 | Gastroenterology Consult Note ---
<Ashely Beasley - Last Filed: 11/25/18 11:20> Date of Encounter: 11/25/18 Time of Encounter: 10:00 - Assessment and plan (1) Chest pain Current Visit: Yes Status: Acute Assessment and plan: cardiology following pt, was advised ok to proceed with EGD today Qualifiers: Chest pain type: unspecified Qualified Code(s): R07.9 - Chest pain, unspecified (2) Anemia Current Visit: Yes Status: Acute Assessment and plan: 58-year-old female who presents with anemia and chest pain. Hemoglobin was 6.8 on admission. She has had 2 units PRBCs. Cardiology was consult and an repeat echo is pending. we will proceed with EGD today to rule out esophagitis, gastritis, duodenitis, peptic ulcer disease, Padmini-Posada tear or AVM. Patient reports she had an EGD in September at [facility] will obtain those records. She is due for a colonoscopy if no bleeding found on EGD, may perform before discharge. Qualifiers: Anemia type: unspecified type Qualified Code(s): D64.9 - Anemia, unspecified (3) Elevated troponin Current Visit: Yes Status: Acute Assessment and plan: may be related to demand ischemia - Time Spent With Patient Total time spent is greater than 50% in coordination of care (as documented) at patient's floor/unit and/or counseling patient: GI History of Present Illness - Data of Consult Patient: new to practice Consult date: 11/25/18 Requesting Physician: Farida Deleon MD - Consult Narrative Reason for consult: anemia History of present illness: Ms. Butcher is a 58 year old female with history of HOCM presented for chest pain and fatigue. For the past week patient has felt fatigued and overall too weak. She has been short of breath with exertion. For the last two days, she has had intermittent episodes of chest pain that is substernal that radiates to her left jaw, and some numbness/tingling. She denies n/v, fevers, abdominal pain, melena, hematochezia, hemoptysis. She took two baby aspirin and was brought into the ED by her and friend for evaluation and passed out briefly prior to evaluation. She has never had any episodes like this in the past. In the ED troponin was elevated at 0.14. An EKG showed LBBB with normal HR, T wave inversions in V5, V6. Hemoglobin low at 6.8, with last known baseline a few years ago was 11.0. A CTA chest/abdomen/pelvis was negative for dissection or obstruction. A CT head was negative. Family history reviewed, significant for coronary artery disease. Stool was positive for occult blood. NSAIDs: Aspirin 81 mg Procedures: EGD 09/19 [facility], Colonoscopy 8 years ago, polyps per pt Anticoagulants: none Past Med Surg Social Fam HX - Past Medical History Medical history: GERD, hypertension, thyroid disease, other Additional medical history: FUNEZ Psychiatric history: depression - Past Surgical History Surgical History: other Additional surgical history: left eye sx - Social History Smoking Status: Never smoker Smokeless Tobacco Status: No Alcohol use: none Drug use: none Review of Systems: GI: as per [place] GENERAL: denies fever, has some chills EYES: denies yellow discoloration ENT: denies pain with swallowing or difficulty swallowing CARDIO: see HPI RESP: Shortness of breath with exertion : denies change in color of urine NEURO: weakness HEME: Denies any bruising MS: denies joint pain, joint swelling or back pain. DERM: denies rash or itching PSYCH: Denies history of anxiety or depression - Constitutional Vitals: Temp Pulse Resp BP Pulse Ox 98.3 F 83 16 150/90 99 11/25/18 09:02 11/25/18 09:02 11/25/18 09:02 11/25/18 09:02 11/25/18 09:02 Exam: CONSTITUTIONAL:alert, no acute distress.HEAD:normocephalic.EYES:no jaundice.NECK:no obvious swelling.HEART:regular rate and rhythm, no murmurs.LUNGS:bilateral good air entry.ABDOMEN:non distended, soft, non te nder, no masses palpable, no organomegaly, obese.RECTAL EXAM:Deferred.EXTREMITIES:no clubbing, cyanosis or edema.SKIN:pallor noted, no stigmata of chronic liver disease.NEUROLOGIC:no obvious focal defect. Results - Labs CBC & Chem 7: 11/25/18 09:48 11/25/18 03:48 Labs: Last Result 11/24/18 11/25/18 11/25/18 21:22 03:48 09:48 Calcium 8.3 L Troponin I 0.17 H* 0.14 H* Entire Visit 11/25/18 11/25/18 03:48 09:48 Hgb 7.0 L 8.7 L D Hct 22.3 L 27.5 L - ABG ABG results: PT/INR, D-dimer PT 11.1 Seconds (9.4-12.1) 11/24/18 14:35 - Impressions Impressions Chest X-Ray 11/24/18 14:38 IMPRESSION: No acute abnormality detected. D/ / Godwin Waterman MD / Godwin Waterman MD Interpreting Provider: Godwin Waterman MD Head CT 11/24/18 14:39 IMPRESSION: No acute intracranial abnormality. D/ / Ha Marks MD / Ha Marks MD Interpreting Provider: Ha Marks MD Dissection 11/24/18 15:26 IMPRESSION: 1. No thoracoabdominal aortic aneurysm or dissection. No acute abnormality in the chest, abdomen, or pelvis. 2. Mild cardiomegaly. 3. Small hiatal hernia. 4. The urinary bladder is fluid distended resulting in fullness of the ureters and collecting systems bilaterally. D/ / 11/24/2018 16:23:16 Ha Marks MD / abel Interpreting Provider: Ha Marks MD Echocardiogram 11/24/18 18:04 Impressions: LVEF 60-65%. Normal LV chamber size and function. Asymmetric hypertrophy of the basal septum. Systolic anterior motion of the MV leaflets. Severe obstruction suggested across the LVOT and AV. AV leaflets not well visualized. PW and CW is analysis suboptimal to determine if level of obstruction is valvular or subvalvular. Normal right ventricular structure and function. Mild mitral regurgitation. Mild tricuspid regurgitation. Mild pulmonary hypertension. Consider repeat TTE with attention to the AV and LVOT or consider ISADORA. Left Ventricular Wall Motion: Rest Echo Findings All wall segments showed normal motion. Findings: Study Quality * Technically sub-optimal due to poor echocardiographic windows. ECG Findings * Normal sinus rhythm. Left Ventricle * LVEF 60-65%. * Normal LV chamber size and function. * Asymmetric hypertrophy of the basal septum. Systolic anterior motion of the MV leaflets. * Severe obstruction suggested across the LVOT and AV. AV leaflets not well visualized. PW and CW analysis is suboptimal to determine if level of obstruction is valvular or subvalvular. Right Ventricle * Normal right ventricular structure and function. Left Atrium * Mild to moderately dilated left atrium. Right Atrium * Normal right atrial size. Interatrial Septum * Interatrial septum not well evaluated. Aortic Valve * Aortic valve not well visualized. * Mildly calcified aortic valve leaflets. * Trace aortic regurgitation. * No aortic stenosis. Mitral Valve * Normal mitral valve structure. * Mild mitral regurgitation. * No mitral stenosis. Tricuspid Valve * Normal tricuspid valve structure. * Mild tricuspid regurgitation. * Mild pulmonary hypertension. Pulmonic Valve * Pulmonic valve not well visualized. * No pulmonic regurgitation. Aorta * Normally sized aortic root. Pericardium * The pericardium appears normal. IVC * Normal IVC dimensions and inspiratory collapse. Pulmonary Artery * Normal visualized portions of the main pulmonary artery. Consult Discharge Plan - Plan Referrals: Wenceslao Turner MD [Primary Care Provider] - <Stephen Mackey - Last Filed: 11/26/18 05:24> Date of Encounter: 11/25/18 - Time Spent With Patient Total time spent is greater than 50% in coordination of care (as documented) at patient's floor/unit and/or counseling patient: GI History of Present Illness - Data of Consult Requesting Physician: Farida Deleon MD - Consult Narrative History of present illness: Ms. Butcher is a 58 year old female - Constitutional Vitals: Temp Pulse Resp BP Pulse Ox 97.8 F 61 16 107/57 96 11/26/18 05:17 11/26/18 05:17 11/26/18 05:17 11/26/18 05:17 11/26/18 05:17 Results - Labs CBC & Chem 7: 11/25/18 22:40 11/25/18 03:48 Labs: Entire Visit 11/25/18 22:40 Hgb 9.7 L Hct 30.7 L - ABG ABG results: PT/INR, D-dimer PT 11.1 Seconds (9.4-12.1) 11/24/18 14:35 - Impressions Impressions Echocardiogram 11/24/18 18:04 Impressions: LVEF 60-65%. Normal LV chamber size and function. Asymmetric hypertrophy of the basal septum. Systolic anterior motion of the MV leaflets. Severe obstruction suggested across the LVOT and AV. AV leaflets not well visualized. PW and CW is analysis suboptimal to determine if level of obstruction is valvular or subvalvular. Normal right ventricular structure and function. Mild mitral regurgitation. Mild tricuspid regurgitation. Mild pulmonary hypertension. Consider repeat TTE with attention to the AV and LVOT or consider ISADORA. Left Ventricular Wall Motion: Rest Echo Findings All wall segments showed normal motion. Findings: Study Quality * Technically sub-optimal due to poor echocardiographic windows. ECG Findings * Normal sinus rhythm. Left Ventricle * LVEF 60-65%. * Normal LV chamber size and function. * Asymmetric hypertrophy of the basal septum. Systolic anterior motion of the MV leaflets. * Severe obstruction suggested across the LVOT and AV. AV leaflets not well visualized. PW and CW analysis is suboptimal to determine if level of obstruction is valvular or subvalvular. Right Ventricle * Normal right ventricular structure and function. Left Atrium * Mild to moderately dilated left atrium. Right Atrium * Normal right atrial size. Interatrial Septum * Interatrial septum not well evaluated. Aortic Valve * Aortic valve not well visualized. * Mildly calcified aortic valve leaflets. * Trace aortic regurgitation. * No aortic stenosis. Mitral Valve * Normal mitral valve structure. * Mild mitral regurgitation. * No mitral stenosis. Tricuspid Valve * Normal tricuspid valve structure. * Mild tricuspid regurgitation. * Mild pulmonary hypertension. Pulmonic Valve * Pulmonic valve not well visualized. * No pulmonic regurgitation. Aorta * Normally sized aortic root. Pericardium * The pericardium appears normal. IVC * Normal IVC dimensions and inspiratory collapse. Pulmonary Artery * Normal visualized portions of the main pulmonary artery. - Attending Attestation 58 year old female admitted with severe anemia and mild elevation of Troponins. Seen by cardiology already and they are awaiting endoscopy after discussing with them. Had a work up at [facility] earlier this year (September) apparently and underwent EGD which revealed a benign ulcer (awaiting records from that institution) She apparently also has hx of colon polyps. Recommend EGD today first. Discussed with patient and I have personally performed a face to face evaluation on this patient. I have reviewed and agree with the care plan. History and Exam by me shows: who was present at bedside.
[2018-11-25] MEDS ORDERED: *HR* Propofol 200 MG/20 ML VIAL IVP ONE (12:37)
[2018-11-25] MEDS ORDERED: Lidocaine -MPF 2% 2 ML VIAL ONE (12:37)
[2018-11-25] MEDS ORDERED: *HR* PHENYLEPHRINE 1,000 MCG/10 ML SYRINGE IVP ONE (12:54)
--- NOTE | 2018-11-25 13:13 | Anesthesia Evaluation PreOp ---
Date of Encounter: 11/25/18 Time of Encounter: 13:50 - Past History Planned Operation: EGD Cardiac History: HTN, Hyperlipidemia, Other (syncope and chest pain(unclear if ischemic in nature). Has HOCM(hpertrophic obstructive cardiomyopathy)) Pulmonary History: Denies Any Significant HX MODEL [employer]ER P[employer]ER History: Denies Any Significant HX Other Medical History: Thyroid, Other (acute blood loss anemia) Anesthesia History: Past Anesthesia (eye sx), Problems (PONV) Alcohol Use: none Drug use: none Medications and Allergies Levothyroxine [Synthroid] 75 mcg PO QAM 07/19/15 [History] Loratadine [Claritin] 10 mg PO QAM PRN 07/19/15 [History] Lisinopril [Zestril] 20 mg PO QAM 11/24/18 [History] Metoprolol [Lopressor] 12.5 mg PO BID 11/24/18 [History] Multivit-Min/Folic Acid/Vit K1 [Multi For Her 50 Plus Softgel] 1 cap PO QAM 11/24/18 [History] Ursodiol 300 mg PO QID 11/24/18 [History] amLODIPine [Norvasc] 5 mg PO QAM 11/24/18 [History] Aspirin [Lo-Dose Aspirin EC] 81 mg PO QAM 11/25/18 [History] Pantoprazole Sodium [Protonix] 40 mg PO QAM 11/25/18 [History] Allergy/AdvReac Type Severity Reaction Status Date / Time No Known Allergies Allergy Verified 11/25/18 00:20 - Meds/Allergy Pre-op Review Medications Reviewed: Yes Allergies Reviewed: Yes Beta Blockers on Current Med List: Yes (lopressor) If Beta Blockers taken, Date/Time (Last Dose taken): today 944 Anesthesia Results - Labs 11/25/18 09:48 11/25/18 03:48 - Imaging Additional studies: echo: Impressions: LVEF 60-65%. Normal LV chamber size and function. Asymmetric hypertrophy of the basal septum. Systolic anterior motion of the MV leaflets. Severe obstruction suggested across the LVOT and AV. AV leaflets not well visualized. PW and CW is analysis suboptimal to determine if level of obstruction is valvular or subvalvular. Normal right ventricular structure and function. Mild mitral regurgitation. Mild tricuspid regurgitation. Mild pulmonary hypertension. Consider repeat TTE with attention to the AV and LVOT or consider ISADORA. holter monitor: Impression: Underlying rhythm is sinus. Infrequent ventricular ectopy. A 6-beat run of NSVT at 126 bpm. Occasional supraventricular ectopy. Symptoms correspond to sinus rhythm. 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
--- NOTE | 2018-11-25 14:06 | Internal Med Progress Note ---
Hospitalist Progress Note - Encounter Date of Encounter: 11/25/18 Time of Encounter: 09:04 - Subjective Interval History: No acute events. She states she feels slightly better, but chest pain did resolve. Denies SOB at rest, melena, hematochezia. - Exam Vitals: Temp Pulse Resp BP Pulse Ox 98.3 F 69 16 140/81 97 11/25/18 13:38 11/25/18 13:38 11/25/18 13:38 11/25/18 13:38 11/25/18 13:38 Exam: Gen: NAD, AAO x3 Head: NC/AT Eyes: conjunctival pallor ENT: MM slightly dry, no lymphadenopathy CVS: RRR Lungs: CTAB Abd: soft, NT/ND Ext: no edema, no cyanosis. . - Assessment and Plan (1) Symptomatic anemia Current Visit: Yes Status: Acute Assessment and Plan: Suspect GI bleed. Hemoglobin 6.8 on admission, BUN slightly elevated. Denies any gross appearing melena, hematochezia, hemoptysis, hematuria, hematemesis. - Transfuse to keep Hgb >7.0, cycle H&H - IV Protonix - NPO - GI evaluation (2) NSTEMI (non-ST elevated myocardial infarction) Current Visit: Yes Status: Acute Assessment and Plan: Suspect due to type II, suspect due to anemia, but will need to rule out cardiac causes. - cycle cardiac enzymes - echocardiogram - Cardiology consultation - See plan for anemia (3) Syncope Current Visit: Yes Status: Acute Assessment and Plan: Likely due to acute and symptomatic anemia. CT head negative, hemodynamically stable. (4) HTN (hypertension) Current Visit: No Status: Chronic Assessment and Plan: After cycling HH and monitoring VS, can resume BP medications as needed. (5) Hypothyroid Current Visit: No Status: Chronic - Time Spent with Patient Total time spent is greater than 50% in coordination of care (as documented) at patient's floor/unit and/or counseling patient: Internal Medicine: Result - Labs CBC & Chem 7: 11/25/18 09:48 11/25/18 03:48 Labs: Short CBC 11/24/18 11/24/18 11/25/18 Range/Units 14:35 21:23 03:48 WBC 8.2 7.0 (4.3-11.1) K/mcL Hgb 6.8 L 7.3 L 7.0 L (11.5-15.4) g/dL Hct 22.3 L 23.4 L 22.3 L (35.3-44.9) % Plt Count 187 163 (140-400) K/mcL Neutrophils # 3.9 3.6 (1.6-8.9) K/mcL 11/25/18 Range/Units 09:48 WBC (4.3-11.1) K/mcL Hgb 8.7 L D (11.5-15.4) g/dL Hct 27.5 L (35.3-44.9) % Plt Count (140-400) K/mcL Neutrophils # (1.6-8.9) K/mcL BMP 11/24/18 11/25/18 14:35 03:48 Sodium 141 141 Potassium 4.0 3.8 Chloride 107 112 H Carbon Dioxide 26 23 BUN 25 H 17 Creatinine 0.89 0.72 Glucose 109 H 91 Calcium 9.2 8.3 L Cardiac Enzymes 11/24/18 11/24/18 11/25/18 Range/Units 14:35 21:22 09:48 Troponin I 0.13 H* 0.17 H* 0.14 H* (< 0.04) ng/mL Urine 11/24/18 Range/Units 16:18 Urine Color Yellow (Yellow) Urine Clarity Clear (Clear) Urine pH 6.0 (5.0-8.0) pH Units Ur Specific [place] 1.026 H (1.010-1.025) Urine Protein Negative (Neg-Trace) mg/dL Urine Glucose (UA) Normal (Normal) mg/dL - ABG Interpretation ABG results: PT/INR, D-dimer PT 11.1 Seconds (9.4-12.1) 11/24/18 14:35 - Impressions Impressions Chest X-Ray 11/24/18 14:38 IMPRESSION: No acute abnormality detected. D/ / Godwin Waterman MD / Godwin Waterman MD Interpreting Provider: Godwin Waterman MD Head CT 11/24/18 14:39 IMPRESSION: No acute intracranial abnormality. D/ / Ha Marks MD / Ha Marks MD Interpreting Provider: Ha Marks MD Dissection 11/24/18 15:26 IMPRESSION: 1. No thoracoabdominal aortic aneurysm or dissection. No acute abnormality in the chest, abdomen, or pelvis. 2. Mild cardiomegaly. 3. Small hiatal hernia. 4. The urinary bladder is fluid distended resulting in fullness of the ureters and collecting systems bilaterally. D/ / 11/24/2018 16:23:16 Ha Marks MD / abel Interpreting Provider: Ha Marks MD Echocardiogram 11/24/18 18:04 Impressions: LVEF 60-65%. Normal LV chamber size and function. Asymmetric hypertrophy of the basal septum. Systolic anterior motion of the MV leaflets. Severe obstruction suggested across the LVOT and AV. AV leaflets not well visualized. PW and CW is analysis suboptimal to determine if level of obstruction is valvular or subvalvular. Normal right ventricular structure and function. Mild mitral regurgitation. Mild tricuspid regurgitation. Mild pulmonary hypertension. Consider repeat TTE with attention to the AV and LVOT or consider ISADORA. Left Ventricular Wall Motion: Rest Echo Findings All wall segments showed normal motion. Findings: Study Quality * Technically sub-optimal due to poor echocardiographic windows. ECG Findings * Normal sinus rhythm. Left Ventricle * LVEF 60-65%. * Normal LV chamber size and function. * Asymmetric hypertrophy of the basal septum. Systolic anterior motion of the MV leaflets. * Severe obstruction suggested across the LVOT and AV. AV leaflets not well visualized. PW and CW analysis is suboptimal to determine if level of obstruction is valvular or subvalvular. Right Ventricle * Normal right ventricular structure and function. Left Atrium * Mild to moderately dilated left atrium. Right Atrium * Normal right atrial size. Interatrial Septum * Interatrial septum not well evaluated. Aortic Valve * Aortic valve not well visualized. * Mildly calcified aortic valve leaflets. * Trace aortic regurgitation. * No aortic stenosis. Mitral Valve * Normal mitral valve structure. * Mild mitral regurgitation. * No mitral stenosis. Tricuspid Valve * Normal tricuspid valve structure. * Mild tricuspid regurgitation. * Mild pulmonary hypertension. Pulmonic Valve * Pulmonic valve not well visualized. * No pulmonic regurgitation. Aorta * Normally sized aortic root. Pericardium * The pericardium appears normal. IVC * Normal IVC dimensions and inspiratory collapse. Pulmonary Artery * Normal visualized portions of the main pulmonary artery. Consult Discharge Plan - Plan Referrals: Wenceslao Turner MD [Primary Care Provider] - (3) Syncope Qualifiers: Syncope type: unspecified Qualified Code(s): R55 - Syncope and collapse (4) HTN (hypertension) Qualifiers: Hypertension type: essential hypertension Qualified Code(s): I10 - Essential (primary) hypertension (5) Hypothyroid Qualifiers: Hypothyroidism type: unspecified Qualified Code(s): E03.9 - Hypothyroidism, unspecified
[2018-11-25] MEDS ORDERED: SODIUM CHLORIDE/NAHCO3/KCL/PEG 4,000 ML SOLN.RECON PO ONE (17:00)
[2018-11-25 23:00] LABS: Basophils % 0.5 %; Eosinophils # 0.2 K/mcL (0.0-0.6); Eosinophils % 2.6 %; Hematocrit 30.7 % (35.3-44.9); Hemoglobin 9.7 g/dL (11.5-15.4); Immature Granulocytes % 0.7 % (0-4); Lymphocytes # 3.5 K/mcL (0.6-4.6); Lymphocytes % 40.6 %; Mean Corpuscular HGB Conc 31.6 g/dL (31.6-35.5); Mean Corpuscular Volume 88.7 fL (83.0-100.0); Mean Platelet Volume 12.1 fL (9.4-12.4); Monocytes # 0.6 K/mcL (0.0-1.3); Neutrophils # 4.2 K/mcL (1.6-8.9); Platelet Count 201 K/mcL (140-400); Red Blood Count 3.46 M/mcL (3.82-4.97); Red Cell Distribution Width 15.5 % (11.5-14.5); Segmented Neutrophils % 48.6 %; White Blood Count 8.6 K/mcL (4.3-11.1)
[2018-11-26 07:02] LABS: Basophils % 0.3 %; Eosinophils # 0.2 K/mcL (0.0-0.6); Eosinophils % 2.4 %; Hematocrit 27.8 % (35.3-44.9); Hemoglobin 8.8 g/dL (11.5-15.4); Immature Granulocytes % 0.4 % (0-4); Lymphocytes # 2.3 K/mcL (0.6-4.6); Lymphocytes % 29.7 %; Mean Corpuscular HGB Conc 31.7 g/dL (31.6-35.5); Mean Corpuscular Volume 88.5 fL (83.0-100.0); Mean Platelet Volume 12.3 fL (9.4-12.4); Monocytes # 0.6 K/mcL (0.0-1.3); Monocytes % 7.2 %; Neutrophils # 4.6 K/mcL (1.6-8.9); Platelet Count 189 K/mcL (140-400); Red Blood Count 3.14 M/mcL (3.82-4.97); Red Cell Distribution Width 15.5 % (11.5-14.5); White Blood Count 7.6 K/mcL (4.3-11.1)
[2018-11-26 07:22] LABS: BUN/Creatinine Ratio 17 (6-26); Blood Urea Nitrogen 13 mg/dL (6-20); Calcium 9.1 mg/dL (8.6-10.3); Carbon Dioxide 24 mEq/L (23-29); Chloride 108 mEq/L (98-107); Glucose 96 mg/dL (70-105); Osmolality,Calculated 290 (280-300); Potassium 3.9 mEq/L (3.5-5.1); Sodium 140 mEq/L (136-145); eGFR For African Americans > 60 (> 60); eGFR For Non-African Americans > 60 (> 60)
[2018-11-26] MEDS: Multivit/Ca/Min/Fe/FA 1 TAB TABLET PO SCH (08:42)
[2018-11-26] MEDS: amLODIPine 5 MG TABLET PO SCH (08:42)
--- NOTE | 2018-11-26 09:50 | Internal Med Progress Note ---
Hospitalist Progress Note - Encounter Date of Encounter: 11/26/18 Time of Encounter: 08:48 - Subjective Interval History: Patient seen and examined this morning at bedside. No acute overnight events. Denies any chest pain difficulty breathing. Had bowel prep and is currently nothing by mouth. Denies any dark stool or bloody stool. - Exam Vitals: Temp Pulse Resp BP Pulse Ox 97.8 F 75 19 102/63 100 11/26/18 07:32 11/26/18 07:32 11/26/18 07:32 11/26/18 07:32 11/26/18 07:32 Exam: General: In no acute distress. Obese Respiratory exam: CTAB. no accessory muscle use, rales, rhonchi, wheezes Cardiovascular exam: RRR, +S1, +S2. systolic murmur GI/Abdominal exam: Non-tender, Non-distended, normal bowel sounds, soft, no peritoneal signs. Extremities exam: no pedal edema, pulses palpable in b/l lower extremities. no calf tenderness Neurological exam: CN II-XII intact, AO X3, no focal deficits. Skin exam: No skin rash . - Assessment and Plan (1) HTN (hypertension) Current Visit: No Status: Chronic (2) Hypothyroid Current Visit: No Status: Chronic (3) NSTEMI (non-ST elevated myocardial infarction) Current Visit: Yes Status: Acute (4) Symptomatic anemia Current Visit: Yes Status: Acute (5) Syncope Current Visit: Yes Status: Acute - Summary of Assessment and Plan Summary of Assessment and Plan: Assessment Acute Elevated troponin and Chest pain Symptomatic anemia Syncope HOCM Chronic HTN hypothyroid Plan - Symptomatic anemia with syncope. Initial Hb 6.8. s/p 2 PRBC. Now 8.8. Not on AC. Suspected GI bleed. EGD with gastritis. Plan for colonoscopy today. GI following. PPI stopped - known HOCM. TTE with EF of 60-65%. asymmetric hypertrophy of basal septum with MELO. Elevated troponin with suspected demand. Cardiology recommendation nappreciated. May need ISADORA. Currently not candidate for ischemic evaluation given GI bleed. - Suspect due to type II, suspect due to anemia, but will need to rule out cardiac causes. - c/w amlodipine, lisinopril and metoprolol for HTN and HOCM. BP stable. - EPCD for DVT ppx. Internal Medicine: Result - Labs CBC & Chem 7: 11/26/18 06:12 11/26/18 06:12 Labs: Short CBC 11/25/18 11/25/18 11/26/18 Range/Units 09:48 22:40 06:12 WBC 8.6 7.6 (4.3-11.1) K/mcL Hgb 8.7 L D 9.7 L 8.8 L (11.5-15.4) g/dL Hct 27.5 L 30.7 L 27.8 L (35.3-44.9) % Plt Count 201 189 (140-400) K/mcL Neutrophils # 4.2 4.6 (1.6-8.9) K/mcL BMP 11/26/18 06:12 Sodium 140 Potassium 3.9 Chloride 108 H Carbon Dioxide 24 BUN 13 Creatinine 0.76 Glucose 96 Calcium 9.1 Cardiac Enzymes 11/25/18 Range/Units 09:48 Troponin I 0.14 H* (< 0.04) ng/mL - ABG Interpretation ABG results: PT/INR, D-dimer PT 11.1 Seconds (9.4-12.1) 11/24/18 14:35 - Impressions Impressions Echocardiogram 11/24/18 18:04 Impressions: LVEF 60-65%. Normal LV chamber size and function. Asymmetric hypertrophy of the basal septum. Systolic anterior motion of the MV leaflets. Severe obstruction suggested across the LVOT and AV. AV leaflets not well visualized. PW and CW is analysis suboptimal to determine if level of obstruction is valvular or subvalvular. Normal right ventricular structure and function. Mild mitral regurgitation. Mild tricuspid regurgitation. Mild pulmonary hypertension. Consider repeat TTE with attention to the AV and LVOT or consider ISADORA. Left Ventricular Wall Motion: Rest Echo Findings All wall segments showed normal motion. Findings: Study Quality * Technically sub-optimal due to poor echocardiographic windows. ECG Findings * Normal sinus rhythm. Left Ventricle * LVEF 60-65%. * Normal LV chamber size and function. * Asymmetric hypertrophy of the basal septum. Systolic anterior motion of the MV leaflets. * Severe obstruction suggested across the LVOT and AV. AV leaflets not well visualized. PW and CW analysis is suboptimal to determine if level of obstruction is valvular or subvalvular. Right Ventricle * Normal right ventricular structure and function. Left Atrium * Mild to moderately dilated left atrium. Right Atrium * Normal right atrial size. Interatrial Septum * Interatrial septum not well evaluated. Aortic Valve * Aortic valve not well visualized. * Mildly calcified aortic valve leaflets. * Trace aortic regurgitation. * No aortic stenosis. Mitral Valve * Normal mitral valve structure. * Mild mitral regurgitation. * No mitral stenosis. Tricuspid Valve * Normal tricuspid valve structure. * Mild tricuspid regurgitation. * Mild pulmonary hypertension. Pulmonic Valve * Pulmonic valve not well visualized. * No pulmonic regurgitation. Aorta * Normally sized aortic root. Pericardium * The pericardium appears normal. IVC * Normal IVC dimensions and inspiratory collapse. Pulmonary Artery * Normal visualized portions of the main pulmonary artery. Consult Discharge Plan - Plan Referrals: Wenceslao Turner MD [Primary Care Provider] - (1) HTN (hypertension) Qualifiers: Hypertension type: essential hypertension Qualified Code(s): I10 - Essential (primary) hypertension (2) Hypothyroid Qualifiers: Hypothyroidism type: unspecified Qualified Code(s): E03.9 - Hypothyroidism, unspecified (5) Syncope Qualifiers: Syncope type: unspecified Qualified Code(s): R55 - Syncope and collapse
--- NOTE | 2018-11-26 10:26 | Cardiology Progress Note ---
Date of Encounter: 11/26/18 Time of Encounter: 10:19 Assessment and Plan (1) Elevated troponin Current Visit: Yes Status: Acute Troponin 0.13, 0.17, 0.14 in setting of acute anemia--HGB 6.8, occult stool positive. Suspect demand ischemia, nondiagnostic for ACS. Presented with fatigue, dyspnea and chest pain, suspect symptoms secondary to anemia. EKG showed LBBB which is known. EF remains preserved on TTE. HOCM plan detailed below. Cardiology signing off. Reconsult PRN. Will coordinate outpt follow-up in 3-4 weeks. (2) HOCM (hypertrophic obstructive cardiomyopathy) Current Visit: Yes Status: Acute TTE LVEF 60-65%. Normal LV chamber size and function. Asymmetric hypertrophy of the basal septum. Systolic anterior motion of the MV leaflets. Severe obstruction suggested across the LVOT and AV. AV leaflets not well visualized. PW and CW is analysis suboptimal to determine if level of obstruction is valvular or subvalvular. Normal RV structure and function. Mild MR. Mild TR. Mild phtn. Will consider repeat TTE with attention to the AV and LVOT or consider ISADORA as an outpatient. Recommend hydration and BB. Increased BB to Lopressor 25mg BID. Consider adding Disopyramide as outpt. Holter 10/16/18 Underlying rhythm is sinus. Infrequent ventricular ectopy. A 6- beat run of NSVT at 126 bpm. Will also discuss outpt regarding HOCM with NSVT and if ICD is warranted. (3) Syncope Current Visit: Yes Status: Acute Episode of dizziness and syncope after arrival to ED. Suspect secondary to blood loss with HGB 6.8 on arrival, but with HOCM as above. Qualifiers: Syncope type: unspecified Qualified Code(s): R55 - Syncope and collapse (4) Chest pain Current Visit: Yes Status: Acute Chest pain in setting of acute anemia. Chest pain since admission. TTE EF preserved. Qualifiers: Chest pain type: unspecified Qualified Code(s): R07.9 - Chest pain, unspecified Discussion w patient/family: The assessment and plan as outlined above was discussed with the patient and/or family members who expressed understanding and agreement. All questions were answered. Thank you for involving us in the care of your patient. Please call with any questions. I will discuss all the above with Dr. Covarrubias and make changes as necessary. Subjective Principal diagnosis: GI Bleed Interval history: No acute cardiac complaints. Denies chest pain or dyspnea. Objective Vital Signs, Last 4 Hours Temp Pulse Resp BP Pulse Ox 11/26/18 07:32 97.8 F 75 19 102/63 100 Vital Signs Temp Pulse Resp BP Pulse Ox 11/26/18 07:32 97.8 F 75 19 102/63 100 11/26/18 05:17 97.8 F 61 16 107/57 96 11/26/18 00:57 97.8 F 63 16 176/82 98 11/25/18 22:13 97.5 F L 79 15 177/98 99 11/25/18 17:12 98.6 F 68 16 148/82 99 11/25/18 13:38 98.3 F 69 16 140/81 97 11/25/18 11:36 63 16 136/79 99 Intake and Output 11/25/18 11/26/18 11/26/18 23:59 07:59 15:59 Intake Total 600 / 2150 0 / 0 Output Total 2900 / 4400 2200 / 2200 Balance -2300 / -2250 -2200 / -2200 Intake: Oral 600 / 600 0 / 0 Output: Urine 900 / 2400 Urine/Stool Mix 1999 / 1999 2200 / 2200 Other: Stool Size Copious Moderate Stool Consistency liquid liquid Stool Color Brown Brown Black Blood Tinged # Voids 1 # Bowel Movements 7 1 Weight 88.2 kg Blood Glucose* 102 Patient Weight 11/26/18 23:59 Weight 88.2 kg General: Conversant, No Apparent Distress HEENT: Atraumatic, Normocephaly, Mucus Membranes Moist Neck: No JVD, Normal carotid pulses Cardiac: Reg Rate and Rhythm, Normal S1 and S2, No Murmur Lungs: Normal Breath Sounds, No Wheeze, Rales, Rhonchi Neuro: Alert and responsive, No focal deficits noted Abdomen: Soft, Non-Tender Skin: No rashes noted on visualized skin Musculoskeletal: No Chest Wall Tenderness Extremities: No Clubbing, No Cyanosis, No Edema, Normal Pulses Results 11/26/18 06:12 11/26/18 06:12 Lab Results 11/25/18 11/25/18 11/26/18 09:48 22:40 06:12 WBC 8.6 7.6 Hgb 9.7 L 8.8 L Hct 30.7 L 27.8 L Plt Count 201 189 Sodium Potassium Chloride Carbon Dioxide BUN Creatinine Glucose Calcium Troponin I 0.14 H* 11/26/18 06:12 WBC Hgb Hct Plt Count Sodium 140 Potassium 3.9 Chloride 108 H Carbon Dioxide 24 BUN 13 Creatinine 0.76 Glucose 96 Calcium 9.1 Troponin I Short CBC 11/26/18 11/25/18 Range/Units 06:12 22:40 WBC 7.6 8.6 (4.3-11.1) K/mcL Hgb 8.8 L 9.7 L (11.5-15.4) g/dL Hct 27.8 L 30.7 L (35.3-44.9) % Plt Count 189 201 (140-400) K/mcL Neutrophils # 4.6 4.2 (1.6-8.9) K/mcL BMP 11/26/18 Range/Units 06:12 Sodium 140 (136-145) mEq/L Potassium 3.9 (3.5-5.1) mEq/L Chloride 108 H (98-107) mEq/L Carbon Dioxide 24 (23-29) mEq/L BUN 13 (6-20) mg/dL Creatinine 0.76 (0.60-1.20) mg/dL Glucose 96 (70-105) mg/dL Calcium 9.1 (8.6-10.3) mg/dL Cardiac Enzymes 11/25/18 Range/Units 09:48 Troponin I 0.14 H* (< 0.04) ng/mL Impressions Echocardiogram 11/24/18 18:04 Impressions: LVEF 60-65%. Normal LV chamber size and function. Asymmetric hypertrophy of the basal septum. Systolic anterior motion of the MV leaflets. Severe obstruction suggested across the LVOT and AV. AV leaflets not well visualized. PW and CW is analysis suboptimal to determine if level of obstruction is valvular or subvalvular. Normal right ventricular structure and function. Mild mitral regurgitation. Mild tricuspid regurgitation. Mild pulmonary hypertension. Consider repeat TTE with attention to the AV and LVOT or consider ISADORA. Left Ventricular Wall Motion: Rest Echo Findings All wall segments showed normal motion. Findings: Study Quality * Technically sub-optimal due to poor echocardiographic windows. ECG Findings * Normal sinus rhythm. Left Ventricle * LVEF 60-65%. * Normal LV chamber size and function. * Asymmetric hypertrophy of the basal septum. Systolic anterior motion of the MV leaflets. * Severe obstruction suggested across the LVOT and AV. AV leaflets not well visualized. PW and CW analysis is suboptimal to determine if level of obstruction is valvular or subvalvular. Right Ventricle * Normal right ventricular structure and function. Left Atrium * Mild to moderately dilated left atrium. Right Atrium * Normal right atrial size. Interatrial Septum * Interatrial septum not well evaluated. Aortic Valve * Aortic valve not well visualized. * Mildly calcified aortic valve leaflets. * Trace aortic regurgitation. * No aortic stenosis. Mitral Valve * Normal mitral valve structure. * Mild mitral regurgitation. * No mitral stenosis. Tricuspid Valve * Normal tricuspid valve structure. * Mild tricuspid regurgitation. * Mild pulmonary hypertension. Pulmonic Valve * Pulmonic valve not well visualized. * No pulmonic regurgitation. Aorta * Normally sized aortic root. Pericardium * The pericardium appears normal. IVC * Normal IVC dimensions and inspiratory collapse. Pulmonary Artery * Normal visualized portions of the main pulmonary artery. Active Medications Amlodipine Besylate (Norvasc) 5 mg PO DAILY [facility]; Protocol Stop: 05/27/19 09:01 Last Admin: 11/26/18 08:42 Dose: 5 mg Documented by: Levothyroxine Sodium (Synthroid) 75 mcg PO QAM@0630 [facility] Stop: 05/27/19 06:31 Last Admin: 11/26/18 06:03 Dose: Not Given Documented by: Lisinopril (Zestril) 20 mg PO DAILY [facility]; Protocol Stop: 05/27/19 09:01 Last Admin: 11/25/18 18:35 Dose: 20 mg Documented by: Metoprolol Tartrate (Lopressor) 25 mg PO BID [facility] Stop: 05/27/19 09:31 Last Admin: 11/26/18 08:42 Dose: 25 mg Documented by: Multivitamins/Calcium (Thera M Plus) 1 tab PO DAILY [facility] Stop: 05/27/19 09:01 Last Admin: 11/26/18 08:42 Dose: 1 tab Documented by: Naloxone HCl (Narcan) 0.4 mg IVP Q2MPRN PRN PRN Reason: SEE COMMENTS Stop: 05/26/19 18:07 Omeprazole (Prilosec) 40 mg PO DAILY@0630 [facility]; Protocol Stop: 05/28/19 06:31 Last Admin: 11/26/18 06:03 Dose: Not Given Documented by: Ursodiol (Ursodiol) 300 mg PO QID [facility] Stop: 05/26/19 22:31 Last Admin: 11/26/18 08:42 Dose: 300 mg Documented by: - Imaging and Cardiology Echo: report reviewed - EKG Interpretation EKG results cardiology: other (12 hr tele AVG HR 66 SR, no significant pauses or arrhythmias) Consult Discharge Plan - Plan Referrals: Wenceslao Turner MD [Primary Care Provider] -
[2018-11-26] MEDS ORDERED: Propofol 500 MG/50 ML INFUS..BTL ONE (12:29)
--- NOTE | 2018-11-26 12:50 | Electrocardiograph Report ---
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
--- NOTE | 2018-11-26 18:08 | Anesthesia Evaluation PreOp ---
Date of Encounter: 11/26/18 Time of Encounter: 18:06 - Past History Planned Operation: Colonoscopy Cardiac History: HTN, Hyperlipidemia, Other (Has HOCM(hpertrophic obstructive cardiomyopathy))) [employer] History: Syncope (syncope and chest pain(unclear if ischemic in nature)) Other Medical History: Thyroid (Hypo) Anesthesia History: Past Anesthesia (eye sx, EGD), Problems (PONV) : No Alcohol Use: none Drug use: none Medications and Allergies Levothyroxine [Synthroid] 75 mcg PO QAM 07/19/15 [History] Loratadine [Claritin] 10 mg PO QAM PRN 07/19/15 [History] Lisinopril [Zestril] 20 mg PO QAM 11/24/18 [History] Metoprolol [Lopressor] 12.5 mg PO BID 11/24/18 [History] Multivit-Min/Folic Acid/Vit K1 [Multi For Her 50 Plus Softgel] 1 cap PO QAM 11/24/18 [History] Ursodiol 300 mg PO QID 11/24/18 [History] amLODIPine [Norvasc] 5 mg PO QAM 11/24/18 [History] Aspirin [Lo-Dose Aspirin EC] 81 mg PO QAM 11/25/18 [History] Pantoprazole Sodium [Protonix] 40 mg PO QAM 11/25/18 [History] Allergy/AdvReac Type Severity Reaction Status Date / Time No Known Allergies Allergy Verified 11/25/18 00:20 - Meds/Allergy Pre-op Review Medications Reviewed: Yes Allergies Reviewed: Yes Beta Blockers on Current Med List: Yes If Beta Blockers taken, Date/Time (Last Dose taken): dose due 11/26/18 Anesthesia Results - Labs 11/26/18 06:12 11/26/18 06:12 - Imaging Additional studies: echo: Impressions: LVEF 60-65%. Normal LV chamber size and function. Asymmetric hypertrophy of the basal septum. Systolic anterior motion of the MV leaflets. Severe obstruction suggested across the LVOT and AV. AV leaflets not well visualized. PW and CW is analysis suboptimal to determine if level of obstruction is valvular or subvalvular. Normal right ventricular structure and function. Mild mitral regurgitation. Mild tricuspid regurgitation. Mild pulmonary hypertension. Consider repeat TTE with attention to the AV and LVOT or consider ISADORA. holter monitor: Impression: Underlying rhythm is sinus. Infrequent ventricular ectopy. A 6-beat run of NSVT at 126 bpm. Occasional supraventricular ectopy. Symptoms correspond to sinus rhythm. Anesthesia Exam Vital Signs/O2 Sat, Most Current Temp Pulse Resp BP Pulse Ox 97.9 F 75 18 129/76 99 11/26/18 16:17 11/26/18 16:17 11/26/18 16:17 11/26/18 16:17 11/26/18 16:17 - HEENT Pupil (Motor): Pupils equal, EOMI Mallampati: II Teeth: Normal Oral Opening: Greater than 3 - [employer] LOC: Oriented, Confused [employer] Motor: Normal RUE, Normal LUE, Normal RLE, Normal LLE, Normal Face [employer] Sensory: Normal: RUE, LUE, RLE, LLE, Face - Cardiac Rhythm: Regular Murmur: None JVD: No Carotid Bruit: No - Pulmonary Breath Sounds: bilateral Clear Respiratory Effort: Symmetrical Anesthesia Assess/Plan ASA Score: 4 Level of consciousness: Cooperative Anesthetic Plan: MAC Autologous Blood: Yes Monitoring Plan: Standard Monitors Recovery Plan: PACU
[2018-11-27 03:26] LABS: Basophils % 0.2 %; Eosinophils # 0.2 K/mcL (0.0-0.6); Eosinophils % 2.3 %; Hematocrit 26.8 % (35.3-44.9); Hemoglobin 8.6 g/dL (11.5-15.4); Immature Granulocytes % 0.2 % (0-4); Lymphocytes # 2.9 K/mcL (0.6-4.6); Lymphocytes % 35.3 %; Mean Corpuscular HGB Conc 32.1 g/dL (31.6-35.5); Mean Corpuscular Hemoglobin 28.6 pg (28.0-33.3); Mean Platelet Volume 11.2 fL (9.4-12.4); Monocytes # 0.6 K/mcL (0.0-1.3); Monocytes % 6.7 %; Neutrophils # 4.5 K/mcL (1.6-8.9); Platelet Count 200 K/mcL (140-400); Red Blood Count 3.01 M/mcL (3.82-4.97); Red Cell Distribution Width 15.4 % (11.5-14.5); Segmented Neutrophils % 55.3 %; White Blood Count 8.2 K/mcL (4.3-11.1)
[2018-11-27 03:46] LABS: BUN/Creatinine Ratio 20 (6-26); Blood Urea Nitrogen 15 mg/dL (6-20); Calcium 8.9 mg/dL (8.6-10.3); Carbon Dioxide 25 mEq/L (23-29); Chloride 109 mEq/L (98-107); Glucose 91 mg/dL (70-105); Osmolality,Calculated 288 (280-300); Potassium 3.8 mEq/L (3.5-5.1); Sodium 139 mEq/L (136-145); eGFR For African Americans > 60 (> 60); eGFR For Non-African Americans > 60 (> 60)
--- NOTE | 2018-11-27 08:43 | Internal Med Progress Note ---
Hospitalist Progress Note - Encounter Date of Encounter: 11/27/18 Time of Encounter: 08:43 - Subjective Interval History: Patient seen and examined this morning it was. No acute overnight events. Denies any chest pain difficulty breathing headache nausea vomiting or diarrhea. - Exam Vitals: Temp Pulse Resp BP Pulse Ox 98.4 F 68 14 86/53 99 11/27/18 07:34 11/27/18 07:34 11/27/18 07:34 11/27/18 07:34 11/27/18 07:34 Exam: General: In no acute distress. Obese Respiratory exam: CTAB. no accessory muscle use, rales, rhonchi, wheezes Cardiovascular exam: RRR, +S1, +S2. systolic murmur GI/Abdominal exam: Non-tender, Non-distended, normal bowel sounds, soft, no peritoneal signs. Extremities exam: no pedal edema, pulses palpable in b/l lower extremities. no calf tenderness Neurological exam: CN II-XII intact, AO X3, no focal deficits. Skin exam: No skin rash . - Assessment and Plan (1) HTN (hypertension) Current Visit: No Status: Chronic (2) Hypothyroid Current Visit: No Status: Chronic (3) NSTEMI (non-ST elevated myocardial infarction) Current Visit: Yes Status: Acute (4) Symptomatic anemia Current Visit: Yes Status: Acute (5) Syncope Current Visit: Yes Status: Acute - Summary of Assessment and Plan Summary of Assessment and Plan: Assessment Acute Elevated troponin and Chest pain Symptomatic anemia GI bleed Syncope HOCM Chronic HTN hypothyroid Plan - Symptomatic anemia with syncope. Initial Hb 6.8. s/p 2 PRBC. Now 8.8. Not on AC. Suspected GI bleed. EGD with gastritis on 11/25/18. colonoscopy with old blood in descending, transverse, ascending colon and cecum. GI following. Plan for push entersocpy today. - known HOCM. TTE with EF of 60-65%. asymmetric hypertrophy of basal septum with MELO. Elevated troponin with suspected demand in setting of anemia and GI bleed per Cardiology. May need ISADORA. Currently not candidate for ischemic evaluation given GI bleed. had hold with NSVT and will need outpatient cardiology f/u for ICD if warranted. Will need to f/u with cardiology as outpatient in 3-4 weeks. cardiology signed off. Will differ starting disopyramide to cardiology on outpatient follow up. - hold amlodipine, lisinopril and metoprolol for now given low BP. Lopressor dose was increased yesterday. On it for HTN and HOCM. Will resume metoprolol first. - EPCD for DVT ppx. Internal Medicine: Result - Labs CBC & Chem 7: 11/27/18 03:15 11/27/18 03:15 Labs: Short CBC 11/27/18 Range/Units 03:15 WBC 8.2 (4.3-11.1) K/mcL Hgb 8.6 L (11.5-15.4) g/dL Hct 26.8 L (35.3-44.9) % Plt Count 200 (140-400) K/mcL Neutrophils # 4.5 (1.6-8.9) K/mcL BMP 11/27/18 03:15 Sodium 139 Potassium 3.8 Chloride 109 H Carbon Dioxide 25 BUN 15 Creatinine 0.74 Glucose 91 Calcium 8.9 - ABG Interpretation ABG results: PT/INR, D-dimer PT 11.1 Seconds (9.4-12.1) 11/24/18 14:35 Consult Discharge Plan - Plan Referrals: Wenceslao Turner MD [Primary Care Provider] - (1) HTN (hypertension) Qualifiers: Hypertension type: essential hypertension Qualified Code(s): I10 - Essential (primary) hypertension (2) Hypothyroid Qualifiers: Hypothyroidism type: unspecified Qualified Code(s): E03.9 - Hypothyroidism, unspecified (5) Syncope Qualifiers: Syncope type: unspecified Qualified Code(s): R55 - Syncope and collapse
[2018-11-27] MEDS: Multivit/Ca/Min/Fe/FA 1 TAB TABLET PO SCH (10:31)
[2018-11-27] MEDS: amLODIPine 5 MG TABLET PO SCH (10:31)
[2018-11-27] MEDS: Lisinopril 20 MG TABLET PO SCH (10:32)
[2018-11-27] MEDS ORDERED: Propofol 500 MG/50 ML INFUS..BTL ONE (13:15)
--- NOTE | 2018-11-27 15:11 | Event Note ---
Date of Encounter: 11/27/18 Time of Encounter: 15:10 - Cardiology Event Note Patient reviewed and discussed with primary service due to concerns of possible ST depression during procedure. Previous cardiology note reviewed and patient has noted history of left bundle branch block-- ECG is nondiagnostic. Patient was admitted with anemia and had mild troponin elevations being medically managed. Patient off antiplatelet therapy at this time due to anemia and has no known history of CAD; has HOCM. Has pending follow-up with cardiology at time of discharge in 2-3 weeks. No further cardiac recommendations.
[2018-11-28 07:40] LABS: Basophils % 0.5 %; Eosinophils # 0.2 K/mcL (0.0-0.6); Eosinophils % 2.7 %; Hematocrit 25.5 % (35.3-44.9); Hemoglobin 8.1 g/dL (11.5-15.4); Immature Granulocytes % 0.3 % (0-4); Lymphocytes # 2.5 K/mcL (0.6-4.6); Mean Corpuscular HGB Conc 31.8 g/dL (31.6-35.5); Mean Corpuscular Hemoglobin 28.1 pg (28.0-33.3); Mean Corpuscular Volume 88.5 fL (83.0-100.0); Monocytes # 0.5 K/mcL (0.0-1.3); Monocytes % 7.7 %; Neutrophils # 2.9 K/mcL (1.6-8.9); Platelet Count 214 K/mcL (140-400); Red Blood Count 2.88 M/mcL (3.82-4.97); Segmented Neutrophils % 47.8 %
[2018-11-28 07:49] LABS: BUN/Creatinine Ratio 23 (6-26); Blood Urea Nitrogen 18 mg/dL (6-20); Calcium 8.7 mg/dL (8.6-10.3); Carbon Dioxide 27 mEq/L (23-29); Chloride 107 mEq/L (98-107); Glucose 97 mg/dL (70-105); Osmolality,Calculated 290 (280-300); Potassium 4.1 mEq/L (3.5-5.1); Sodium 139 mEq/L (136-145); eGFR For African Americans > 60 (> 60); eGFR For Non-African Americans > 60 (> 60)
[2018-11-28] MEDS: amLODIPine 5 MG TABLET PO SCH (08:37)
[2018-11-28] MEDS: Lisinopril 20 MG TABLET PO SCH (08:37)
[2018-11-28] MEDS: Multivit/Ca/Min/Fe/FA 1 TAB TABLET PO SCH (08:39)
[2018-11-28 11:42] VITALS: BP 111/58
--- NOTE | 2018-11-28 12:25 | Discharge Summary ---
- NOTES TO OUTPATIENT PROVIDER Notes to Outpatient Provider: Patient with a follow-up H&H within a week. Patient will need Endoscopy with GI Follow-Up As Outpatient. I Asked to Hold Her Home Blood Pressure Medication Given Blood Pressure in the Lower End except Lopressor. Patient also need follow-up with cardiology in 2 weeks for follow-up for HOCM. To be considered adding disopyramide as outpatient per cardiology and also get cardiac MRI for risk stratification for SCD placement. Date of Encounter: 11/28/18 Time of Encounter: 10:25 - Discharge Diagnosis (1) HTN (hypertension) Priority: Secondary Status: Chronic Qualifiers: Hypertension type: essential hypertension Qualified Code(s): I10 - Essential (primary) hypertension (2) Hypothyroid Priority: Secondary Status: Chronic Qualifiers: Hypothyroidism type: unspecified Qualified Code(s): E03.9 - Hypothyroidism, unspecified (3) Symptomatic anemia Priority: Primary Status: Acute (4) Syncope Priority: Primary Status: Acute Qualifiers: Syncope type: unspecified Qualified Code(s): R55 - Syncope and collapse (5) Anemia due to blood loss, acute Priority: Primary Status: Acute (6) Upper GI bleed Priority: Primary Status: Acute (7) Elevated troponin Priority: Primary Status: Acute (8) HOCM (hypertrophic obstructive cardiomyopathy) Priority: Secondary Status: Acute Hospital course: Ms. 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 CT had was negative and CTA chest abdomen pelvis was negative for dissection. She was found to have severe anemia with hemoglobin 6.8 with melanotic stool. Patient also found to have elevated troponin. Gastroenterology consult and cardiology consult was obtained. Patient received 2 units of PRBCs. Patient underwent EGD, colonoscopy and push enteroscopy. Colonoscopy was unremarkable. Push enteroscopy showed 2-year-old and greater curvature of stomach and single erosion proximal jejunum. Per GI patient should be of any NSAID as findings probably related to use of aspirin. Per cardiology troponin elevated likely related to demand ischemia in view of existing HOCM. Patient has LBBB and associated ST T changes which is known. Patient had NSVT on outpatient monitoring with HOCM. Patient will need outpatient MRI to further risk stratify to consider for ICD. Patient will need outpatient follow-up with cardiology for the same, as well as to consider adding disopyramide. Patient will need to follow hemoglobin check within a week. Patient will need to follow with PCP within one week and gastroenterology and cardiology within 2-3 weeks. Aspirin will be stopped on discharge. Blood pressure medication will be stopped except Lopressor if blood pressure tolerates. I asked patient to monitor blood pressure to home. To also consider disopyramide per cardiology as outpatient. Patient otherwise stable without active bleeding or ongoing melena. Otherwise stable to be discharged home. Patient to cancel her travel plans after discussion. Discharge discussed with: patient, family, nurse, social work, architecture consultant - Time Spent with Patient Total time spent providing and/or coordinating discharge services: Time spent: Greater than 30 minutes (35) - Discharge Medications Prescriptions: Continued Loratadine [Claritin] 10 mg PO QAM PRN PRN Reason: Allergy Symptoms Levothyroxine [Synthroid] 75 mcg PO QAM Ursodiol 300 mg PO QID Metoprolol [Lopressor] 12.5 mg PO BID Multivit-Min/Folic Acid/Vit K1 [Multi For Her 50 Plus Softgel] 1 cap PO QAM Pantoprazole Sodium [Protonix] 40 mg PO QAM Discontinued amLODIPine [Norvasc] 5 mg PO QAM Lisinopril [Zestril] 20 mg PO QAM Aspirin [Lo-Dose Aspirin EC] 81 mg PO QAM Home Medications: Levothyroxine [Synthroid] 75 mcg PO QAM 07/19/15 [History] Loratadine [Claritin] 10 mg PO QAM PRN 07/19/15 [History] Metoprolol [Lopressor] 12.5 mg PO BID 11/24/18 [History] Multivit-Min/Folic Acid/Vit K1 [Multi For Her 50 Plus Softgel] 1 cap PO QAM 11/24/18 [History] Ursodiol 300 mg PO QID 11/24/18 [History] Pantoprazole Sodium [Protonix] 40 mg PO QAM 11/25/18 [History] Allergies/Adverse Reactions: Allergy/AdvReac Type Severity Reaction Status Date / Time No Known Allergies Allergy Verified 11/25/18 00:20 Date of admission: 11/24/18 16:46 Primary care physician: Wenceslao Turner Consults: 11/24/18 18:02 Consult to Cardiology [CONS] Routine Comment: Consulting Provider: Cardiology Leona Reason for Consult: nstemi Call Completed: No Consult to Gastroenterology [CONS] Routine Consulting Provider: Gastroenterology Leona Reason for Consult: Acute blood loss anemia Call Completed: No Discharging clinician: Niko Cerda - Constitutional Vitals: Temp Pulse Resp BP Pulse Ox 98.3 F 62 16 111/58 96 11/28/18 11:39 11/28/18 11:39 11/28/18 11:39 11/28/18 11:39 11/28/18 11:39 Exam: General: In no acute distress. Obese, Respiratory exam: CTAB. no accessory muscle use, rales, rhonchi, wheezes Cardiovascular exam: RRR, +S1, +S2. systolic murmur GI/Abdominal exam: Non-tender, Non-distended, normal bowel sounds, soft, no peritoneal signs. Extremities exam: no pedal edema, pulses palpable in b/l lower extremities. no calf tenderness Neurological exam: CN II-XII intact, AO X3, no focal deficits. Skin exam: No skin rash - Patient Status Disposition: Home, Self-Care Condition: Good - Discharge Instructions Follow Up With: Ashely Beasley [Advanced Practice Nurse] - (submitted a web request for Dr. Beasley office to call patient for a hospital follow up ) Wenceslao Turner MD [Primary Care Provider] - 12/03/18 2:30 pm Guero Garcia MD [Non-Partnered Physician] - (Submitted a web request for Dr. Garcia office to call the patient with a hospital follow up) - Diet and Activity Activity: increase activity as tolerated
== END 2018-11-28 14:49 | disposition home or self-care (01) ==
LOC: 2NENU 14:31 → EMEROOARM 14:31 → SUATTDRO 16:46 → 2NENU 17:32
PROVIDERS: ADMIT Internal Medicine Nephrology; ATTEND Internal Medicine

== ENCOUNTER 2018-11-29 11:20 | Observation (INO) ==
[2018-11-29] MEDS ORDERED: 0.9 % Sodium Chloride 1,000 ML IVC ONE (11:32)
--- NOTE | 2018-11-29 11:37 | Emergency Department Note ---
Disposition Clinical Impression: Anemia, Weakness Disposition: Admitted As Inpatient Condition: Good Forms: ED Satisfaction Letter Time of Disposition: 14:13 Dizziness HPI - General Chief Complaint: ED Dizziness Stated Complaint: diziness Time Seen by Provider: 11/29/18 11:22 Source: EMS - History of Present Illness HPI Narrative: Patient 30-year-old female presents to emergency department with chief complaint of dizziness and weakness. Patient reports that she was discharged from the hospital 48 hours ago after she had had a GI bleed and had blood transfusions in the hospital. Patient states that she went home started feeling a little weak again and then this morning got to the point where she was lightheaded whenever she would stand up and felt as though she had tingling over her entire body. Patient states she feels like whenever she had extremely low hemoglobin and required blood transfusions. Patient states that prior to her original admis adiran she had some chest discomfort but has not had discomfort today states that she has felt a little confused when she has been feeling at the worst. Patient states that she has not looked in her bowel movements since she went home denies any vomiting denies abdominal pain - Related Data Home Medications Medication Instructions Recorded Confirmed Levothyroxine [Synthroid] 75 mcg PO QAM 07/19/15 11/25/18 Loratadine [Claritin] 10 mg PO QAM PRN 07/19/15 11/24/18 Metoprolol [Lopressor] 12.5 mg PO BID 11/24/18 11/24/18 Multivit-Min/Folic Acid/Vit K1 1 cap PO QAM 11/24/18 11/25/18 [Multi For Her 50 Plus Softgel] Ursodiol [Actigall] 300 mg PO QID 11/24/18 11/25/18 Pantoprazole Sodium [Protonix] 40 mg PO QAM 11/25/18 11/25/18 Allergies Allergy/AdvReac Type Severity Reaction Status Date / Time No Known Allergies Allergy Verified 11/25/18 00:20 All systems ED: reviewed and negative except as stated. Constitutional: Denies: fever, chills, weakness, weight change Eyes: Denies: eye pain, eye discharge, vision change ENT ED: Denies: ear pain, throat pain, dental pain, hearing loss, epistaxis, congestion, dysphagia Cardiovascular: Denies: chest pain, palpitations, dyspnea on exertion, edema, syncope Respiratory: Denies: cough, dyspnea, wheezes, hemoptysis, stridor Gastrointestinal: Reports: as per HPI Genitourinary: Denies: dysuria, frequency, hematuria, discharge Musculoskeletal: Denies: back pain, neck pain, arthralgia, myalgia Integumentary: Denies: rash, abrasion, lesions Neurological: Reports: weakness, confusion. Denies: headache, paresthesias, abnormal gait, vertigo Psychiatric: Denies: anxiety, depression, suicidal thoughts, homicidal thoughts, auditory hallucinations, visual hallucinations Endocrine: Denies: fatigue Hematological/Lymphatic: Denies: easy bleeding, easy bruising Allergic/Immunologic: Denies: facial swelling, urticaria Past Medical History - Past Medical History Attestation: Yes The following information was validated with the patient. Medical history: Reports: GERD, hypertension, thyroid disease, other Surgical history: Reports: other Psychiatric history: Reports: depression [employer]IE[employer] history: Reports: endometriosis - Social History Smoking Status: Never smoker Smokeless Tobacco Status: No Alcohol use: Reports: none Drug use: Reports: none Physical Exam General: Conversant and appears pale and weak. Head: Normocephalic/atraumatic Eyes:PERRLA, EOMI, no conjunctivitis Nares: Without d/c. Ears: No erythema or d/c noted. 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 Cardovascular: regular rate and rhythm Systolic ejection murmur, brisk capillary refill, no peripheral edema. Lungs: Clear to ascultation bilaterally, non-labored Abd: Soft nontender, Non Distended, no guarding, no rebound. : Defered Extremities: moves all extremities equally Neuro: AOx3, no obvious gross neuro deficit Psych: Normal Affect Derm: No rash noted - General General appearance: lethargic Course Vital Signs Temperature 98.4 F 11/29/18 11:25 Pulse Rate 69 11/29/18 11:25 Respiratory Rate 18 11/29/18 11:25 Blood Pressure 145/81 11/29/18 11:25 O2 Sat by Pulse Oximetry 100 11/29/18 11:25 Temperature 98.4 F 11/29/18 11:25 Pulse Rate 71 11/29/18 12:10 Respiratory Rate 15 11/29/18 12:10 Blood Pressure 108/58 11/29/18 12:10 O2 Sat by Pulse Oximetry 100 11/29/18 12:10 Oxygen Delivery Oxygen Delivery Room Air Dizziness - MDM Narrative Medical decision making narrative: The patient was recently admitted for a GI bleed and required transfusion while she was in the hospital at that time. Today the patient has dropped 2 g of hemoglobin since her previous discharge given her generalized weakness it was discussed with the hospitalist and the patient be admitted to the hospital - Lab Data Result diagrams: 11/29/18 11:43 11/29/18 11:43 Lab Results 11/29/18 11/29/18 11/29/18 Range/Units 11:43 11:43 11:43 WBC 5.6 (4.3-11.1) K/mcL RBC 2.56 L (3.82-4.97) M/mcL Hgb 7.2 L (11.5-15.4) g/dL Hct 22.2 L (35.3-44.9) % MCV 86.7 (83.0-100.0) fL MCH 28.1 (28.0-33.3) pg MCHC 32.4 (31.6-35.5) g/dL RDW 14.6 H (11.5-14.5) % Plt Count 206 (140-400) K/mcL MPV 11.1 (9.4-12.4) fL Immature Gran % 0.4 (0-4) % Seg Neutrophils % 44.7 % Lymphocytes % 44.0 % Monocytes % 8.3 % Eosinophils % 2.2 % Basophils % 0.4 % Neutrophils # 2.5 (1.6-8.9) K/mcL Lymphocytes # 2.5 (0.6-4.6) K/mcL Monocytes # 0.5 (0.0-1.3) K/mcL Eosinophils # 0.1 (0.0-0.6) K/mcL Basophils # 0.0 (0.0-0.2) K/mcL PT (9.4-12.1) Seconds INR APTT (26.0-36.0) Seconds Sodium 140 (136-145) mEq/L Potassium 3.6 (3.5-5.1) mEq/L Chloride 108 H (98-107) mEq/L Carbon Dioxide 23 (23-29) mEq/L BUN 20 (6-20) mg/dL Creatinine 0.79 (0.60-1.20) mg/dL Est GFR ( Amer) > 60 (> 60) Est GFR (Non-Af Amer) > 60 (> 60) BUN/Creatinine Ratio 25 (6-26) Glucose 123 H (70-105) mg/dL Calculated Osmolality 294 (280-300) Lactic Acid 1.4 (0.5-2.2) mmol/L Calcium 8.8 (8.6-10.3) mg/dL Magnesium 1.8 (1.6-2.6) mg/dL Total Bilirubin 0.6 (0.3-1.0) mg/dL AST 17 (13-39) Units/L ALT 23 (7-52) Units/L Alkaline Phosphatase 67 (34-104) Units/L Troponin I < 0.03 (< 0.04) ng/mL Serum Total Protein 5.9 L (6.4-8.9) g/dL Albumin 3.3 L (3.5-5.7) g/dL Globulin 2.6 (2.4-3.5) g/dL Albumin/Globulin Ratio 1.3 (1.1-2.2) Blood Type Antibody Screen 11/29/18 11/29/18 Range/Units 11:43 11:43 WBC (4.3-11.1) K/mcL RBC (3.82-4.97) M/mcL Hgb (11.5-15.4) g/dL Hct (35.3-44.9) % MCV (83.0-100.0) fL MCH (28.0-33.3) pg MCHC (31.6-35.5) g/dL RDW (11.5-14.5) % Plt Count (140-400) K/mcL MPV (9.4-12.4) fL Immature Gran % (0-4) % Seg Neutrophils % % Lymphocytes % % Monocytes % % Eosinophils % % Basophils % % Neutrophils # (1.6-8.9) K/mcL Lymphocytes # (0.6-4.6) K/mcL Monocytes # (0.0-1.3) K/mcL Eosinophils # (0.0-0.6) K/mcL Basophils # (0.0-0.2) K/mcL PT 11.6 (9.4-12.1) Seconds INR 1.0 APTT 33.1 (26.0-36.0) Seconds Sodium (136-145) mEq/L Potassium (3.5-5.1) mEq/L Chloride (98-107) mEq/L Carbon Dioxide (23-29) mEq/L BUN (6-20) mg/dL Creatinine (0.60-1.20) mg/dL Est GFR ( Amer) (> 60) Est GFR (Non-Af Amer) (> 60) BUN/Creatinine Ratio (6-26) Glucose (70-105) mg/dL Calculated Osmolality (280-300) Lactic Acid (0.5-2.2) mmol/L Calcium (8.6-10.3) mg/dL Magnesium (1.6-2.6) mg/dL Total Bilirubin (0.3-1.0) mg/dL AST (13-39) Units/L ALT (7-52) Units/L Alkaline Phosphatase (34-104) Units/L Troponin I (< 0.04) ng/mL Serum Total Protein (6.4-8.9) g/dL Albumin (3.5-5.7) g/dL Globulin (2.4-3.5) g/dL Albumin/Globulin Ratio (1.1-2.2) Blood Type O POSITIVE Antibody Screen NEGATIVE
[2018-11-29 11:57] LABS: Basophils % 0.4 %; Eosinophils # 0.1 K/mcL (0.0-0.6); Eosinophils % 2.2 %; Hematocrit 22.2 % (35.3-44.9); Hemoglobin 7.2 g/dL (11.5-15.4); Immature Granulocytes % 0.4 % (0-4); Lymphocytes # 2.5 K/mcL (0.6-4.6); Mean Corpuscular HGB Conc 32.4 g/dL (31.6-35.5); Mean Corpuscular Hemoglobin 28.1 pg (28.0-33.3); Mean Corpuscular Volume 86.7 fL (83.0-100.0); Mean Platelet Volume 11.1 fL (9.4-12.4); Monocytes # 0.5 K/mcL (0.0-1.3); Monocytes % 8.3 %; Neutrophils # 2.5 K/mcL (1.6-8.9); Platelet Count 206 K/mcL (140-400); Red Blood Count 2.56 M/mcL (3.82-4.97); Red Cell Distribution Width 14.6 % (11.5-14.5); Segmented Neutrophils % 44.7 %; White Blood Count 5.6 K/mcL (4.3-11.1)
[2018-11-29 12:04] LABS: Prothrombin Time 11.6 Seconds (9.4-12.1)
[2018-11-29 12:07] LABS: Activated Partial Thrombo Time 33.1 Seconds (26.0-36.0)
[2018-11-29 14:06] LABS: Alanine Aminotransferase 23 Units/L (7-52); Albumin 3.3 g/dL (3.5-5.7); Albumin/Globulin Ratio 1.3 (1.1-2.2); Alkaline Phosphatase 67 Units/L (34-104); Aspartate Amino Transferase 17 Units/L (13-39); BUN/Creatinine Ratio 25 (6-26); Bilirubin,Total 0.6 mg/dL (0.3-1.0); Blood Urea Nitrogen 20 mg/dL (6-20); Calcium 8.8 mg/dL (8.6-10.3); Carbon Dioxide 23 mEq/L (23-29); Chloride 108 mEq/L (98-107); Globulin 2.6 g/dL (2.4-3.5); Glucose 123 mg/dL (70-105); Magnesium 1.8 mg/dL (1.6-2.6); Osmolality,Calculated 294 (280-300); Potassium 3.6 mEq/L (3.5-5.1); Sodium 140 mEq/L (136-145); Total Protein 5.9 g/dL (6.4-8.9); Troponin I < 0.03 ng/mL (< 0.04); eGFR For African Americans > 60 (> 60); eGFR For Non-African Americans > 60 (> 60)
--- NOTE | 2018-11-29 14:39 | Internal Med History&Physical ---
Date of Encounter: 11/29/18 Time of Encounter: 14:45 Internal Medicine - H&P: HPI Chief complaint: weakness, melena Admitted From: Home Plans for Post Hospital Care: Home History of present illness: Ms. Butcher is a 58 year old female with past medical history GERD hypertension thyroid disease Funez and recent admission for symptomatic anemia and syncope. She was discharged to home on 11/28/18 after being admitted for anemia related to suspected upper GI bleed. Hemoglobin on that admission was 6.8. She received 2 units of blood and hemoglobin appropriately increased to 8.8. Hemoglobin on discharge yesterday was 8.1. Her course last admission included GI evaluation with EGD 11/25 which showed gastritis and colonoscopy with old blood throughout the entire colon. Those reports are not yet uploaded in [employer]. There documented in discharge summary yesterday. She had push enteroscopy 11/27 which revealed non bleeding gastric erosions and one non bleeding proximal jejunal erosion. She additionally was evaluated by cardiology for syncope and elevated troponin. Troponin elevation was suspected to be secondary to demand ischemia with GI bleed. Echocardiogram showed HOCM per discharge paperwork. Plan per cardiology with outpatient follow-up with outpatient cardiac MRI and further evaluation for ICD placement as she additionally had an NSVT. They were to consider starting disopyramide outpt. She is awake with at bedside. On return to home last evening pt had some mild dizziness and throughout evening began to feel generally weak. She ate dinner and had a formed brown stool. She continued to feel unwell with some mild abd cramping then ahd two episodes loose melanotic stool. This morning she felt continually weak, lightheaded and as if she would faint. called EMS and she presented to ED. She is no longer dizzy but is generally weak. Mild sob on exertion. No chest pain. No current abd pain and no associated n/v or current diarrhea. no bms since to ED. Hgb 1 gm drop since yesterday morning. Received IVF IL bolus, BPs low 100s/60s, with intial bp 140s sbp. CXR neg. typed and screened. INR and plts normal. trop neg. ekg as d/w ed attending without ischemic changes cv- no chest pain, pressure, palpitations, syncope, le edema or orthopnea, she notes chronic heart murmur pulm- sob on exertion, mild, no cough, wheezing, sputum, orhtopnea or pnd neuro- no focal numbness, weakness; no paralysis, headache, speech or vision changes. full code status confirmed Past Med Surg Social Fam HX - Past Medical History Medical history: GERD, hypertension, thyroid disease, other Additional medical history: FUNEZ endometriosis Psychiatric history: depression - Past Surgical History Surgical History: other Additional surgical history: left eye sx,left shoulder - Social History Smoking Status: Never smoker Smokeless Tobacco Status: No Alcohol use: none Drug use: none - Additional Family History Additional family history: reviewed and non contributory Internal Medicine - H&P: Meds Levothyroxine [Synthroid] 75 mcg PO QAM 07/19/15 [History] Loratadine [Claritin] 10 mg PO QAM PRN 07/19/15 [History] Metoprolol [Lopressor] 12.5 mg PO BID 11/24/18 [History] Multivit-Min/Folic Acid/Vit K1 [Multi For Her 50 Plus Softgel] 1 cap PO QAM 11/24/18 [History] Ursodiol [Actigall] 300 mg PO QID 11/24/18 [History] Pantoprazole Sodium [Protonix] 40 mg PO QAM 11/25/18 [History] 3 Allergy/AdvReac Type Severity Reaction Status Date / Time No Known Allergies Allergy Verified 11/25/18 00:20 All Systems PM: A 10-system review of systems was performed and is negative for pertinent findings except as documented above in the HPI. - Constitutional Vitals: Temp Pulse Resp BP Pulse Ox 98.4 F 69 16 105/67 97 11/29/18 11:25 11/29/18 14:30 11/29/18 14:30 11/29/18 14:30 11/29/18 14:30 Exam: General: awake, alert, appears stated age HEENT: pupils equal, round, moist mucus membranes,no conjunctival pallor Neck: supple, trachea midline Cardiovascular:regular rate and rhythm, normal S1 & S2, + SM No JVD. radial pulses 2+, no lower extremity edema Lungs:Normal breath sounds, no wheezes, or crackles. Normal respiratory effort on room air Abdomen:Soft, non-tender, non-distended, no rigidity, + bowel sounds Neurological: AAOx3, CN grossly intact, moves all ext without strength deficit Skin:Normal color, no rash, no pallor, no jaundice Internal Med - H&P Results - Labs CBC & Chem 7: 11/29/18 11:43 11/29/18 11:43 Labs: Short CBC 11/29/18 Range/Units 11:43 WBC 5.6 (4.3-11.1) K/mcL Hgb 7.2 L (11.5-15.4) g/dL Hct 22.2 L (35.3-44.9) % Plt Count 206 (140-400) K/mcL Neutrophils # 2.5 (1.6-8.9) K/mcL BMP 11/29/18 11:43 Sodium 140 Potassium 3.6 Chloride 108 H Carbon Dioxide 23 BUN 20 Creatinine 0.79 Glucose 123 H Calcium 8.8 Cardiac Enzymes 11/29/18 Range/Units 11:43 Troponin I < 0.03 (< 0.04) ng/mL Liver Function 11/29/18 Range/Units 11:43 Total Bilirubin 0.6 (0.3-1.0) mg/dL AST 17 (13-39) Units/L ALT 23 (7-52) Units/L Alkaline Phosphatase 67 (34-104) Units/L Albumin 3.3 L (3.5-5.7) g/dL - Impressions ITS Impressions Chest X-Ray 11/29/18 11:32 IMPRESSION: Normal chest x-ray D/ / Ross Scruggs MD / Ross Scruggs MD Interpreting Provider: Ross Scruggs MD - Assessment and Plan (1) Symptomatic anemia Current Visit: Yes Status: Acute (2) Upper GI bleed Current Visit: Yes Status: Acute - Summary of Assessment and Plan Summary of Assessment and Plan: Mrs Butcher is being observed for acute on chronic GIB blood loss anemia Symptomatic acute on chronic anemia as evidenced by dyspnea on exertion, precyncope, 1gm Hgb drop since dc 11/28/18- now 7.2 2/2 Suspected upper GI bleed Unclear at this time if active GIB or if she is expelling known old blood from colon on prior scope Currently hemodynamically stable in ED sbps 100s/60s on multiple checks this afternoon (one isolated reading with sbp 140s) -1 unit prbc stat and cont IVFs -d/w acute care surgery attending--will obtain NM GI bleeding scan today and she will follow result, if active bleeding from known gastric or jejunal erosions pt will undergo repeat EGD today, otherwise will cont to monitor -surgery will follow this weekend until GI team whom knows her from last admit returns 12/01 (saturday) -serial H/Hs -IV PPI -npo HTN- hold home lopressor GERD- PPI as above NSVT Hx- tele, repelte K and Mag to 4 and 2 respectively, cont to monitor, unless acute issues will see cards outpt as planned, BB as above HOCM hx- outpt follow up with cards plan in place form dc 11/28 Hypothyroidism- cont synthroid FUNEZ- hold ursodiol as limiting PO meds at this time vte ppx scds only - Time Spent With Patient Total time spent is greater than 50% in coordination of care (as documented) at patient's floor/unit and/or counseling patient: Greater than 35 minutes
[2018-11-29] MEDS ORDERED: Potassium Chloride Elixir 20 MEQ/15 ML UDC PO ONE (14:42)
[2018-11-29] MEDS ORDERED: Ondansetron 4 MG/2 ML VIAL IVP PRN (14:45)
[2018-11-29] MEDS ORDERED: Naloxone 0.4 MG/ML INJ IVP PRN (14:45)
[2018-11-29] MEDS: Pantoprazole 40 MG VIAL IVP SCH (15:20)
[2018-11-29] MEDS ORDERED: 0.9 % Sodium Chloride 250 ML ONE (15:59)
--- NOTE | 2018-11-29 20:06 | AcuteCare Surgery Consult Note ---
Date of Encounter: 11/29/18 Time of Encounter: 20:00 Assessment and Plan (1) GI bleed Current Visit: Yes Status: Acute Not identified. Recommend SB pill cam. Treat symptomatic anemia with transfusion PRBCs. NM GI bleeding scan is negative. No further endoscopy or surgical intervention recommended at this time. Pt to F/U with her GI. Thank you for allowing me to participate in this patient's care. Surgery signing off. Reconsult prn. Qualifiers: Qualified Code(s): K92.2 - Gastrointestinal hemorrhage, unspecified (2) Symptomatic anemia Current Visit: Yes Status: Acute History of Present Illness Consult date: 11/29/18 Reason for consult: other (GI bleeding and symptomatic anemia) Requesting physician: Jodi Alba History of present illness: Pt presents to [facility] ED for feeling lightheaded and weak after melenotic BM. She was recently admitted to the hospital for GI bleeding and significant anemia. She was evaluated with EGD, Colonoscopy and enteroscopy. She was treated with blood transfusion. She responded well to tx and was DC home in stable condition. After she was home she had a melenotic BM and then felt dizzy. She came back to hospital and was found to have a Hgb of 7.2 (from 8.1). Currently, after 1 U PRBCs, she feels better. Denies BRBPR. Denies n/v or hematemesis. She denies abdominal pain. Past Med Surg Social Fam HX - Past Medical History Medical history: GERD, hypertension, thyroid disease, other Additional medical history: FUNEZ endometriosis Psychiatric history: depression - Past Surgical History Surgical History: other Additional surgical history: left eye sx,left shoulder - Social History Smoking Status: Never smoker Smokeless Tobacco Status: No Alcohol use: none Drug use: none Medications and Allergies Levothyroxine [Synthroid] 75 mcg PO QAM 07/19/15 [History] Loratadine [Claritin] 10 mg PO QAM PRN 07/19/15 [History] Metoprolol [Lopressor] 12.5 mg PO BID PRN 11/24/18 [History] Multivit-Min/Folic Acid/Vit K1 [Multi For Her 50 Plus Softgel] 1 cap PO QAM 11/24/18 [History] Ursodiol [Actigall] 600 mg PO BID 11/24/18 [History] Pantoprazole Sodium [Protonix] 40 mg PO QAM 11/25/18 [History] Allergy/AdvReac Type Severity Reaction Status Date / Time No Known Allergies Allergy Verified 11/29/18 17:35 Review of Systems All systems PM: The remainder of the systems were reviewed and are negative - Constitutional as per HPI, fatigue, weakness, no anorexia, no chills, no fever(s), no headache(s), no night sweats, no weight loss - EENT Nose, mouth and throat: dizziness, dry mouth, no nasal congestion, no nasal discharge, no sinus pain, no sinus pressure, no sore throat - Cardiovascular dyspnea, dyspnea on exertion, no chest pain, no edema - Respiratory dyspnea, no cough, no hemoptysis, no wheezing - Gastrointestinal melena, no abdominal pain, no belching, no bloating, no constipation, no diarrhea, no nausea, no vomiting - Genitourinary Genitourinary: no dysuria, no flank pain, no urinary frequency - Musculoskeletal no back pain, no joint swelling, no limited range of motion, no neck pain - Integumentary no dry skin, no pruritus, no rash, no wounds, no jaundice - Neurological dizziness, weakness, no focal weakness - Psychiatric anxiety, no depression - Endocrine fatigue - Hematologic/Lymphatic no easy bleeding, no easy bruising General Surgery Exam Initial Vital Signs Temp Pulse Resp BP Pulse Ox 98.4 F 69 18 145/81 100 11/29/18 11:25 11/29/18 11:25 11/29/18 11:25 11/29/18 11:25 11/29/18 11:25 - General physical appearance well developed, well nourished, no distress, no pain - Eyes PERRL, normal ocular movement. negative: icteric - ENT normal mucosa, no congestion. negative: nasal discharge - Neck trachea midline, no lymphadectomy, no venous distension - Respiratory normal respiratory effort, clear to auscultation - Cardiovascular Cardiovascular exam: Present: RRR. Absent: murmurs, JVD - Abdomen Abdomen general surgery: Present: bowel sounds present, soft, non tender, distended. Absent: guarding, rebound - Genitourinary Present: normal external genitalia - Integumentary Integumentary general surgery: Present: warm and dry - Neurologic Present: CN 2-12 grossly intact, normal coordination - Musculoskeletal Present: normal posture - Psychiatric Psychiatric general surgery: Present: A&Ox3, appropriate Exam Initial Vital Signs Temp Pulse Resp BP Pulse Ox 98.4 F 69 18 145/81 100 11/29/18 11:25 11/29/18 11:25 11/29/18 11:25 11/29/18 11:25 11/29/18 11:25 Results - Labs 11/30/18 04:17 11/30/18 04:17 Abnormal lab results RBC 2.56 M/mcL (3.82-4.97) L 11/29/18 11:43 Hgb 7.2 g/dL (11.5-15.4) L 11/29/18 11:43 Hct 22.2 % (35.3-44.9) L 11/29/18 11:43 RDW 14.6 % (11.5-14.5) H 11/29/18 11:43 Chloride 108 mEq/L (98-107) H 11/29/18 11:43 Glucose 123 mg/dL (70-105) H 11/29/18 11:43 5.9 g/dL (6.4-8.9) L 11/29/18 11:43 3.3 g/dL (3.5-5.7) L 11/29/18 11:43 Crossmatch See Detail 11/29/18 11:43 Diabetes panel 11/29/18 Range/Units 11:43 Sodium 140 (136-145) mEq/L Potassium 3.6 (3.5-5.1) mEq/L Chloride 108 H (98-107) mEq/L Carbon Dioxide 23 (23-29) mEq/L BUN 20 (6-20) mg/dL Creatinine 0.79 (0.60-1.20) mg/dL Glucose 123 H (70-105) mg/dL Calcium 8.8 (8.6-10.3) mg/dL AST 17 (13-39) Units/L ALT 23 (7-52) Units/L Alkaline Phosphatase 67 (34-104) Units/L Albumin 3.3 L (3.5-5.7) g/dL Calcium panel 11/29/18 Range/Units 11:43 Calcium 8.8 (8.6-10.3) mg/dL Albumin 3.3 L (3.5-5.7) g/dL Pituitary panel 11/29/18 Range/Units 11:43 Sodium 140 (136-145) mEq/L Potassium 3.6 (3.5-5.1) mEq/L Chloride 108 H (98-107) mEq/L Carbon Dioxide 23 (23-29) mEq/L BUN 20 (6-20) mg/dL Creatinine 0.79 (0.60-1.20) mg/dL Glucose 123 H (70-105) mg/dL Calcium 8.8 (8.6-10.3) mg/dL Adrenal panel 11/29/18 Range/Units 11:43 Sodium 140 (136-145) mEq/L Potassium 3.6 (3.5-5.1) mEq/L Chloride 108 H (98-107) mEq/L Carbon Dioxide 23 (23-29) mEq/L BUN 20 (6-20) mg/dL Creatinine 0.79 (0.60-1.20) mg/dL Glucose 123 H (70-105) mg/dL Calcium 8.8 (8.6-10.3) mg/dL Total Bilirubin 0.6 (0.3-1.0) mg/dL AST 17 (13-39) Units/L ALT 23 (7-52) Units/L Alkaline Phosphatase 67 (34-104) Units/L Albumin 3.3 L (3.5-5.7) g/dL All other labs normal. - Imaging Additional studies: NM GI bleeding scan is negative for active GI bleeding. EGD 11/25 reveals no active bleeding. Colonsocopy 11/26 reveals dark black stool c/w recent bleeding, most likely from above. Enteroscopy into jejunum 11/27 reveals no active bleeding. Consult Discharge Plan - Plan Referrals: Wenceslao Turner MD [Primary Care Provider] -
[2018-11-29 21:03] LABS: Hematocrit 26.9 % (35.3-44.9); Hemoglobin 8.6 g/dL (11.5-15.4)
[2018-11-29] MEDS: Ringers Solution, Lactated 1,000 ML IVC SCH (21:14)
[2018-11-30 05:11] LABS: Alanine Aminotransferase 21 Units/L (7-52); Albumin 3.1 g/dL (3.5-5.7); Albumin/Globulin Ratio 1.3 (1.1-2.2); Alkaline Phosphatase 61 Units/L (34-104); Aspartate Amino Transferase 16 Units/L (13-39); BUN/Creatinine Ratio 19 (6-26); Bilirubin,Total 0.9 mg/dL (0.3-1.0); Blood Urea Nitrogen 14 mg/dL (6-20); Calcium 8.4 mg/dL (8.6-10.3); Carbon Dioxide 26 mEq/L (23-29); Chloride 109 mEq/L (98-107); Globulin 2.3 g/dL (2.4-3.5); Glucose 87 mg/dL (70-105); Osmolality,Calculated 290 (280-300); Potassium 3.9 mEq/L (3.5-5.1); Sodium 140 mEq/L (136-145); Total Protein 5.4 g/dL (6.4-8.9); eGFR For African Americans > 60 (> 60); eGFR For Non-African Americans > 60 (> 60)
[2018-11-30 05:19] LABS: Basophils % 0.5 %; Eosinophils # 0.2 K/mcL (0.0-0.6); Eosinophils % 3.2 %; Hematocrit 24.5 % (35.3-44.9); Hemoglobin 7.7 g/dL (11.5-15.4); Immature Granulocytes % 0.5 % (0-4); Lymphocytes # 2.6 K/mcL (0.6-4.6); Lymphocytes % 41.7 %; Mean Corpuscular HGB Conc 31.4 g/dL (31.6-35.5); Mean Corpuscular Hemoglobin 28.3 pg (28.0-33.3); Mean Corpuscular Volume 90.1 fL (83.0-100.0); Mean Platelet Volume 12.2 fL (9.4-12.4); Monocytes # 0.5 K/mcL (0.0-1.3); Monocytes % 7.4 %; Neutrophils # 2.9 K/mcL (1.6-8.9); Platelet Count 190 K/mcL (140-400); Red Blood Count 2.72 M/mcL (3.82-4.97); Segmented Neutrophils % 46.7 %; White Blood Count 6.2 K/mcL (4.3-11.1)
[2018-11-30] MEDS: Pantoprazole 40 MG VIAL IVP SCH ×2 (06:33→17:36)
--- NOTE | 2018-11-30 08:08 | Internal Med Progress Note ---
Hospitalist Progress Note - Encounter Date of Encounter: 11/30/18 Time of Encounter: 08:15 - Subjective Interval History: asleep, awakes to name. no abd pain, n/v/d. no melena this morning. Denies sob, cp. + fatigue and lightheadedness. agreeable to another unit prbc today. discussed treatment plan and surgery recs. Pt happy with plan and all questions answered. She is happy to eat today as she has been very hungry - Exam Vitals: Temp Pulse Resp BP Pulse Ox 98.4 F 71 14 112/70 98 11/30/18 05:24 11/30/18 05:24 11/30/18 05:24 11/30/18 05:24 11/30/18 05:24 Exam: General: awake, alert, appears stated age Cardiovascular:regular rate and rhythm, normal S1 & S2, + SM no lower extremity edema Lungs:Normal breath sounds, Normal respiratory effort on room air Abdomen:Soft, non-tender, non-distended, no rigidity, + bowel sounds Neurological: AAOx3 Skin:Normal color, no pallor - Assessment and Plan (1) Symptomatic anemia Current Visit: Yes Status: Acute (2) Upper GI bleed Current Visit: Yes Status: Acute - Summary of Assessment and Plan Summary of Assessment and Plan: Mrs Butcher is being observed for acute on chronic GIB blood loss anemia Symptomatic acute on chronic anemia 2/2 recent upper GI bleed Suspect melena related to prior bleed and not active bleed at this time Hemodynamically stable NM GIB scan negative -1 unit prbc 11/29 with greater than expected increase, now down trending this morning 7.7 -at this time, 1 unit prbc to get to hgb 8 given her cardiac hx, repeat hgb this evening and in am, no scope as no active bleeding on bleeding scan -surgery will follow and saturday her established GI will be updated -IV PPI -advance diet as tolerated HTN- hold home lopressor as low normotensive without it and low BPs could contribute to symptoms GERD- PPI as above NSVT Hx- tele, repelte K and Mag to 4 and 2 respectively daily, cont to monitor, unless acute issues will see cards outpt as planned, BB as above HOCM hx- outpt follow up with cards plan in place form dc 11/28 Hypothyroidism- cont synthroid FUNEZ- ursodiol vte ppx scds only Plan of Care Discussed with: patient Internal Medicine: Result - Labs CBC & Chem 7: 11/30/18 04:17 11/30/18 04:17 Labs: Short CBC 11/29/18 11/29/18 11/30/18 Range/Units 11:43 20:44 04:17 WBC 5.6 6.2 (4.3-11.1) K/mcL Hgb 7.2 L 8.6 L 7.7 L (11.5-15.4) g/dL Hct 22.2 L 26.9 L 24.5 L (35.3-44.9) % Plt Count 206 190 (140-400) K/mcL Neutrophils # 2.5 2.9 (1.6-8.9) K/mcL BMP 11/29/18 11/30/18 11:43 04:17 Sodium 140 140 Potassium 3.6 3.9 Chloride 108 H 109 H Carbon Dioxide 23 26 BUN 20 14 Creatinine 0.79 0.74 Glucose 123 H 87 Calcium 8.8 8.4 L Cardiac Enzymes 11/29/18 Range/Units 11:43 Troponin I < 0.03 (< 0.04) ng/mL Liver Function 11/29/18 11/30/18 Range/Units 11:43 04:17 Total Bilirubin 0.6 0.9 (0.3-1.0) mg/dL AST 17 16 (13-39) Units/L ALT 23 21 (7-52) Units/L Alkaline Phosphatase 67 61 (34-104) Units/L Albumin 3.3 L 3.1 L (3.5-5.7) g/dL - ABG Interpretation ABG results: PT/INR, D-dimer PT 11.6 Seconds (9.4-12.1) 11/29/18 11:43 - Impressions Impressions Chest X-Ray 11/29/18 11:32 IMPRESSION: Normal chest x-ray D/ / Ross Scruggs MD / Ross Scruggs MD Interpreting Provider: Ross Scruggs MD Bleed Scan Nuclear Medicine 11/29/18 15:18 IMPRESSION: No evidence of active GI bleeding during acquisition. RECOMMENDATIONS: If the patient shows hemodynamic signs of an active bleed in the next 20 hours, additional images can be acquired. D/ / Miles Irizarry MD / Miles Irizarry MD Interpreting Provider: Miles Irizarry MD Consult Discharge Plan - Plan Referrals: Wenceslao Turner MD [Primary Care Provider] -
[2018-11-30] MEDS ORDERED: Potassium Chloride Elixir 20 MEQ/15 ML UDC PO ONE (08:11)
[2018-11-30] MEDS ORDERED: 0.9 % Sodium Chloride 250 ML ONE (09:28)
[2018-11-30] MEDS: Ringers Solution, Lactated 1,000 ML IVC SCH (12:30)
--- NOTE | 2018-11-30 13:52 | Electrocardiograph Report ---
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
[2018-11-30 16:00] LABS: Hematocrit 27.8 % (35.3-44.9)
[2018-12-01] MEDS: Pantoprazole 40 MG VIAL IVP SCH ×2 (06:03→18:33)
[2018-12-01 06:36] LABS: Hematocrit 26.5 % (35.3-44.9); Hemoglobin 8.4 g/dL (11.5-15.4)
[2018-12-01 06:58] LABS: BUN/Creatinine Ratio 18 (6-26); Blood Urea Nitrogen 15 mg/dL (6-20); Calcium 8.9 mg/dL (8.6-10.3); Carbon Dioxide 29 mEq/L (23-29); Chloride 107 mEq/L (98-107); Glucose 98 mg/dL (70-105); Magnesium 1.9 mg/dL (1.6-2.6); Osmolality,Calculated 293 (280-300); Potassium 4.1 mEq/L (3.5-5.1); Sodium 141 mEq/L (136-145); eGFR For African Americans > 60 (> 60); eGFR For Non-African Americans > 60 (> 60)
--- NOTE | 2018-12-01 07:37 | Internal Med Progress Note ---
Hospitalist Progress Note - Encounter Date of Encounter: 12/01/18 Time of Encounter: 08:50 - Subjective Interval History: awake, improved energy, no abd pain/n/v. no bms today. tolerating diet without issue. no lightheadedness or dizziness. She is very fixated on hgb number and hesitant to have her hgb in the 8s, though notes overall stable and greatly i mproved sxs. No cp, sob or fatigue. - Exam Vitals: Temp Pulse Resp BP Pulse Ox 97.4 F L 72 16 108/68 99 12/01/18 07:08 12/01/18 07:08 12/01/18 07:08 12/01/18 07:08 12/01/18 07:08 Exam: General: awake, alert, appears stated age Eyes: no conjunctival pallor Cardiovascular:regular rate and rhythm, normal S1 & S2, + SM Lungs:Normal breath sounds, Normal respiratory effort on room air Abdomen:Soft, non-tender, non-distended, no rigidity, + bowel sounds Neurological: AAOx3 Skin:Normal color, no pallor - Assessment and Plan (1) Symptomatic anemia Current Visit: Yes Status: Resolved (2) Upper GI bleed Current Visit: Yes Status: Acute - Summary of Assessment and Plan Summary of Assessment and Plan: Mrs Butcher is being observed for acute on chronic GIB blood loss anemia Symptomatic acute on chronic anemia 2/2 recent upper GI bleed, resolved sxs, stable hgb Suspect melena related to prior bleed and not active bleed at this time Hemodynamically stable NM GIB scan negative 1 unit prbc 11/29 with greater than expected increase, then down trended 1 unit prbc / with greater than expected increase, then down trended to 8.4 this morning, repeat this afternoon 8.6 -GI team has now taken over, plan is another unit prbc this afternoon (given her history of slow down tredns and sxs at home prompting re admit within 24 hrs on last dc) then would be stable to dc to home with GI scheduling outpt capsule endoscopy, gi will notify primary team of date/time scheduled for, hope is for 24-48hrs from dc to help avoid re admission -PPI HTN- held home lopressor as low normotensive without it and low BPs could contribute to symptoms, given sxs improved with prbcs, she may resume this on dc and fu with cards as scheduled GERD- PPI as above NSVT Hx- tele, unless acute issues will see cards outpt as planned, BB as above HOCM hx- outpt follow up with cards plan in place form dc 11/28 Hypothyroidism- cont synthroid FUNEZ- ursodiol vte ppx scds only dispo- unit prbc this afternoon , likely to home later pending confirmation of outpt small capsule endoscopy Internal Medicine: Result - Labs CBC & Chem 7: 12/01/18 12:11 12/01/18 06:26 Labs: Short CBC 11/30/18 12/01/18 Range/Units 15:49 06:26 Hgb 9.0 L 8.4 L (11.5-15.4) g/dL Hct 27.8 L 26.5 L (35.3-44.9) % BMP 12/01/18 06:26 Sodium 141 Potassium 4.1 Chloride 107 Carbon Dioxide 29 BUN 15 Creatinine 0.84 Glucose 98 Calcium 8.9 - ABG Interpretation ABG results: PT/INR, D-dimer PT 11.6 Seconds (9.4-12.1) 11/29/18 11:43 Consult Discharge Plan - Plan Referrals: Wenceslao Turner MD [Primary Care Provider] -
[2018-12-01 12:30] LABS: Hematocrit 27.4 % (35.3-44.9); Hemoglobin 8.6 g/dL (11.5-15.4)
--- NOTE | 2018-12-01 13:23 | Gastroenterology Consult Note ---
Date of Encounter: 12/01/18 Time of Encounter: 10:30 - Assessment and plan (1) GI bleed Current Visit: Yes Status: Acute Assessment and plan: Hgb on this admission was 7.2. GI bleeding scan was negative. She was given one unit PRBC and Hgb 8.6. Hgb dropped again to 7.7 on 11/30 and after one unit PRBC Hgb 9. This AM Hgb 8.4 and recheck 6 hours later Hgb 8.6. Continue to monitor CBC. Recommend transfusing one unit PRBC today and discharge home. Plan for capsule endoscopy as outpatient. Attempting to get capsule endoscopy set up for tomorrow, if patient will be discharged. Qualifiers: GI bleed type/associated pathology: unspecified gastrointestinal hemorrhage type Qualified Code(s): K92.2 - Gastrointestinal hemorrhage, unspecified (2) Symptomatic anemia Current Visit: Yes Status: Acute Assessment and plan: As above. - Time Spent With Patient Total time spent is greater than 50% in coordination of care (as documented) at patient's floor/unit and/or counseling patient: GI History of Present Illness - Data of Consult Patient: known to practice within the last 3 years Consult date: 12/01/18 Requesting Physician: Jodi Alba - Consult Narrative Reason for consult: Anemia History of present illness: Ms. Butcher is a 58 year old female with PMHx of HOCM, GERD, HTN, who was recently admitted for symptomatic anemia and was discharged 07/31. She was admitted with Hgb 6.8. EGD, colonoscopy, and push enterscopy were completed, with no obvious source of bleeding noted. She report 2 episode of melena at [facility], and started to feel weak and lightheaded and was brought to the ED via EMS. Hgb on this admission was 7.2. GI bleeding scan was negative. She was given one unit PRBC and Hgb 8.6. hgb dropped again to 7.7 on 11/30 and after one unit PRBC Hgb 9. This AM Hgb 8.4 and recheck 6 hours later Hgb 8.6. Procedures: EGD 11/25/2018 Dr. Mackey: Small hiatal hernia, gastritis. Colonoscopy 11/26/2018 Dr. Mackey: Blood from the cecum to descending colon, internal hemorrhoids. Push enteroscopy 11/27/2018 Dr. Mackey: Mild Schatzki ring, 2 cm hiatal hernia, erosive gastropathy, jejunal erosion. NSAIDs: None Anticoagulation: None Past Med Surg Social Fam HX - Past Medical History Medical history: GERD, hypertension, thyroid disease, other Additional medical history: FUNEZ endometriosis Psychiatric history: depression - Past Surgical History Surgical History: other Additional surgical history: left eye sx,left shoulder - Social History Smoking Status: Never smoker Smokeless Tobacco Status: No Alcohol use: none Drug use: none - Gastrointestinal Gastrointestinal: Present: as per HPI - Constitutional Constitutional: as per HPI - EENT Eyes: as per HPI Ears: Present: as per HPI Nose, mouth and throat: Present: as per HPI - Cardiovascular Cardiovascular ROS: Present: as per HPI - Respiratory Respiratory IM: Present: as per HPI - Genitourinary Genitourinary: Absent: change in color, Urinary frequency - Neurological ROS Neurological GI: Present: as per HPI - Hematologic/Lymphatic Hematologic/Lymphatic pediatric: Present: as per HPI - Musculoskeletal Musculoskeletal ROS GI: Present: as per HPI - Integumentary Integumentary GI: Present: as per HPI - Psychiatric ROS Psychiatric GI: Present: as per HPI - Endocrine Endocrine IM: Present: as per HPI - Constitutional Vitals: Temp Pulse Resp BP Pulse Ox 97.7 F 85 16 116/61 97 12/01/18 11:15 12/01/18 11:15 12/01/18 11:15 12/01/18 11:15 12/01/18 11:15 General appearance: Present: cooperative, A&O X 3, no acute distress, answers questions appropriately - Head Head exam: Present: atraumatic, normocephalic - Eye Eye exam: Present: normal appearance, sclera anicteric - ENT ENT exam: Present: mucous membranes dry - Neck Neck exam general surgery: Present: normal inspection, trachea midline - Respiratory Respiratory exam: Present: CTAB. Absent: rales, rhonchi - Cardiovascular Cardiovascular exam: Present: RRR, +S1, +S2 - GI/Abdominal GI/Abdominal exam: Present: soft, no peritoneal signs. Absent: distended, firm, guarding, tenderness - Rectal Rectal exam: Present: deferred - Extremities Exam Extremities exam: Present: warm - Neurological Exam Neurological exam: Present: no focal deficits - Psychiatric Psychiatric exam: Present: normal affect, normal mood - Skin Skin exam: Present: dry, intact, normal color, warm Results - Labs CBC & Chem 7: 12/01/18 12:11 12/01/18 06:26 Labs: Last Result 12/01/18 06:26 Calcium 8.9 Entire Visit 12/01/18 12/01/18 06:26 12:11 Hgb 8.4 L 8.6 L Hct 26.5 L 27.4 L - ABG ABG results: PT/INR, D-dimer PT 11.6 Seconds (9.4-12.1) 11/29/18 11:43 Consult Discharge Plan - Plan Referrals: Wenceslao Turner MD [Primary Care Provider] -
--- NOTE | 2018-12-01 13:57 | Discharge Summary ---
- NOTES TO OUTPATIENT PROVIDER Notes to Outpatient Provider: outpt small capsule endocscopy with GI scheduled. Requires cardiology follow up as instructed on last dc 11/28. Monitor bp on new lopressor started on last dc for NSVT Orders not resulted at time of discharge: Pending orders 11/29/18 11:43 Red Blood Cells [BBK] Stat Type and Screen [BBK] Stat 12/02/18 04:00 CBC [Complete Blood Count] [HEME] AM 0400 Date of Encounter: 12/01/18 Time of Encounter: 08:50 - Discharge Diagnosis (1) Symptomatic anemia Priority: Primary Status: Resolved Assessment and Plan: Symptomatic acute on chronic anemia 2/2 recent upper GI bleed, resolved sxs, stable hgb Suspect melena related to prior bleed and not active bleed at this time Hemodynamically stable NM GIB scan negative 1 unit prbc 11/29 with greater than expected increase, then down trended 1 unit prbc 11/30 with greater than expected increase, then down trended to 8.4 this morning, repeat this afternoon 8.6 -GI team has now taken over, plan is another unit prbc prior to dc (given her history of slow down trends and sxs at home prompting re admit within 24 hrs on last dc) then dc to home with GI scheduling outpt capsule endoscopy -cont PPI (2) Upper GI bleed Priority: Secondary Status: Acute Assessment and Plan: as above Hospital course: Ms. Butcher is a 58 year old female past medical history GERD hypertension thyroid disease Estrella and recent admission for symptomatic anemia and syncope. She was discharged to home on 11/28/18 after being admitted for anemia related to suspected upper GI bleed. Hemoglobin on that admission was 6.8. She received 2 units of blood and was dc to home with hgb 8.1. Her course last admission included GI evaluation with EGD 11/25 which showed gastritis and colonoscopy with old blood throughout the entire colon as per dc summary. She had push enteroscopy 11/27 which revealed non bleeding gastric erosions and one non bleeding proximal jejunal erosion. She additionally was evaluated by cardiology for syncope and elevated troponin. Troponin elevation was suspected to be secondary to demand ischemia with GI bleed. Echocardiogram showed HOCM per discharge paperwork. Plan per cardiology with outpatient follow-up with outpatient cardiac MRI and further evaluation for ICD placement as she additionally had an NSVT. They were to consider starting disopyramide outpt. She re presented to ED 11/29 with symptomatic anemia. She had a 1gm hgb drop since discharge and associated fatigue and dizziness. As it was the weekend Acute Care Surg followed, then on return of GI team 12/01 (Saturday) they took over care. GI bleeding scan was negative this admission. No scopes were preformed. It was suspected she was still clearing old blood though slow acute bleed could not be entirely ruled out. The GI team whom knows her from previous week recommended an addl unit blood (bringing total to 3 units this admission, gaol hgb >8 given recent cardiac dxs) and outpt capsule endoscopy which was arranged prior to dc. Her hgb was stable and uptrending on two checks prior to discharge. Hgb on dc 10. Her co morbidities, including cardiac issues, were stable throughout this admission. She is medically stable and will fu with GI as scheduled for small capsule endoscopy 12/03/18 and Cards as set up on previous admission. full details of course can be seen in the diagnoses section of this document. Discharge discussed with: patient, nurse, information resource consultant - Time Spent with Patient Time spent: Greater than 30 minutes (50 min) - Discharge Medications Prescriptions: Continued Loratadine [Claritin] 10 mg PO QAM PRN PRN Reason: Allergy Symptoms Levothyroxine [Synthroid] 75 mcg PO QAM Ursodiol [Actigall] 600 mg PO BID Metoprolol [Lopressor] 12.5 mg PO BID PRN PRN Reason: "SBP>100" Multivit-Min/Folic Acid/Vit K1 [Multi For Her 50 Plus Softgel] 1 cap PO QAM Pantoprazole Sodium [Protonix] 40 mg PO QAM Home Medications: Levothyroxine [Synthroid] 75 mcg PO QAM 07/19/15 [History] Loratadine [Claritin] 10 mg PO QAM PRN 07/19/15 [History] Metoprolol [Lopressor] 12.5 mg PO BID PRN 11/24/18 [History] Multivit-Min/Folic Acid/Vit K1 [Multi For Her 50 Plus Softgel] 1 cap PO QAM 11/24/18 [History] Ursodiol [Actigall] 600 mg PO BID 11/24/18 [History] Pantoprazole Sodium [Protonix] 40 mg PO QAM 11/25/18 [History] Allergies/Adverse Reactions: Allergy/AdvReac Type Severity Reaction Status Date / Time No Known Allergies Allergy Verified 11/29/18 17:35 Date of admission: 11/29/18 15:42 Primary care physician: Wenceslao Turner Consults: 11/29/18 14:49 Consult to Surgery [CONS] Routine Consulting Provider: Acute Care Surgery Reason for Consult: symptomatic anemia with suspected gi bleed; just discharged 11/28 with gib; appreciate assitance regarding eval for re scope Call Completed: Yes 12/01/18 07:35 Consult to Gastroenterology [CONS] Routine Consulting Provider: Gastroenterology Leona Reason for Consult: pt known to Dr nury baldwin dc 11/28 (GIB, scoped), returned 11/29 hgb drop, requiring prbcs, surg followed over weekend, request GI now take over; treatment/eval recs appreciated,continually decreasing hgb, bleeding scan neg Call Completed: Yes Discharging clinician: Jodi Alba - Constitutional Vitals: Temp Pulse Resp BP Pulse Ox 97.7 F 85 16 116/61 97 12/01/18 11:15 12/01/18 11:15 12/01/18 11:15 12/01/18 11:15 12/01/18 11:15 Exam: General: awake, alert, appears stated age Eyes: no conjunctival pallor Cardiovascular:regular rate and rhythm, normal S1 & S2, + SM Lungs:Normal breath sounds, Normal respiratory effort on room air Abdomen:Soft, non-tender, non-distended, no rigidity, + bowel sounds Neurological: AAOx3 Skin:Normal color, no pallor - Patient Status Disposition: Home, Self-Care Condition: Good Functional capacity at discharge: independent ambulation Overall status at discharge: patient is back to baseline - Discharge Instructions Follow Up With: Wenceslao Turner MD [Primary Care Provider] - Stephen Mackey MD [Partnered Physician] - Additional Instructions: you have received paperwork with instructions regarding your small capsule endoscopy date/time and preparation. Your Cardiology plan and follow up remains the same as on your last discharge. - Diet and Activity Activity: increase activity as tolerated Diet: advance to your usual diet
[2018-12-01] MEDS ORDERED: 0.9 % Sodium Chloride 250 ML ONE (14:53)
[2018-12-01 18:39] VITALS: BP 126/88
[2018-12-01 19:01] LABS: Hematocrit 31.5 % (35.3-44.9)
== END 2018-12-01 20:01 | disposition home or self-care (01) ==
LOC: SUATTDRO → 3ANU 11:20 → EMEROOARM 11:20 → SUATTDRO 15:42 → 3ANU 17:21
PROVIDERS: ADMIT Internal Medicine; ATTEND Internal Medicine